=== PATIENT | female | born 1950 | race Caucasian/White ===

== ENCOUNTER → 2017-03-02 | Outpatient (CLI) | payer OTHER ==
[~2017-03-02] MED LIST: ADULT LOW DOSE81 MG; AMBIEN 10 MG TA10 MG PO; ANTIVERT25 MG PO; APAP500 PO; ASPIRIN EC81 M1 PO; ASPIRIN325 PO; B-121000 MCG PO; B12INJ; B12INJ SL; BAYER CHEWABLE81 MG PO; BENADRYL25 MG PO; BENZONATATE100 MG PO; BLACK COHOSH PO; BLUE EMU; BUSPAR PO; CENTRUM SILVER1 EAC3; CEROVITE SENIO1 EACH PO; CINNAMON; CINNAMON PO; CIPROFLOXACIN500 M1 PO; CLARITIN10 MG PO; CO Q-10100 MG PO; COENZYME Q10100 M2 PO; COENZYME Q10100 MG PO; COENZYME Q1050 M1 PO; COENZYME Q1060 MG; DIFLUCAN150 MG PO; EFFEXOR XR150 MG PO; EFFEXOR XR75 MG PO; FANAPT1 MG PO; FANAPT2 MG PO; FISH OIL 1,4001 EACH; FISH OIL 1,4001 EACH PO; FLAXSEED OIL PO; FLAXSEED OIL1000 M2 PO; FLAXSEED OIL1000 MG; FLEXERIL PO; FUROSEMIDE 20 M20 M1 PO; HYDROXYZINE HCL25 M1 PO; IBUPROFEN 400400 M2 PO; IRON325 PO; K-DUR 20 MEQ T20 MEQ PO; KEFLEX500 MG PO; KLOR-CON 1010 MEQ; KLOR-CON 1010 MEQ PO; LAMICTAL100 MG PO; LASIX 20 MG TAB20 MG; LASIX 20 MG TAB20 MG PO; LEVOTHYROXIN0.125 M1 PO; LEVOTHYROXIN0.137 M1 PO; LOMOTIL TABLET1 EACH; LOMOTIL TABLET1 EACH PO; LORATIDINE 10 M10 M1 PO; LUNESTA2 MG PO; LUNESTA3 MG; LYRICA 50 MG50 MG; LYRICA 50 MG50 MG PO; MAGNESIUM250 M1; MAGNESIUM250 M1 PO; METFORMIN HCL500 MG PO; METOPROLOL SUCC25 M1 PO; NEXIUM40 MG; NORCO 5-325 TA1 EACH PO; OMEPRAZOLE40 MG PO; OXCARBAZEPINE600 MG PO; OXYBUTYNIN 5 MG5 M2 PO; PEPCID PO; POTASSIUM20 PO; PRILOSEC40 MG PO; PROAIR HFA8.5 GM; PROSIGHT TABLE1 EACH PO; PROVENTIL HFA6.7 G1 INH; RED YEAST RICE600 MG PO; REQUIP 1 MG TABL1 M1 PO; RESTORIL30 MG PO; ROZEREM PO; SAPHRIS10 MG SL; SEROQUEL 100 M100 MG PO; SEROQUEL 25 MG25 MG; SEROQUEL PO; SEROQUEL XR 30300 M1 PO; SIMVASTATIN40 MG PO; TOPAMAX 25 MG T25 M1 PO; TOPROL XL25 MG PO; TRAZODONE HCL100 MG PO; TRILEPTAL 300300 MG; TYLENOL EX-STR500 M2 PO; VENLAFAXINE HC225 MG PO; VISTARIL 25 MG25 M1; VITAMIN B-12500 MCG PO; ZOCOR PO; ZPAK PO; [UNRECOGNIZED DRUG - MIXTURE]; [UNRECOGNIZED DRUG - MIXTURE] PO
== END ==
LOC: RAD 02:42
DX: Z12.31 Encounter for screening mammogram for malignant neoplasm of breast (principal)

== ENCOUNTER 2017-03-21 13:19 | Emergency (ER) | payer OTHER ==
[~2017-03-21] VITALS: Ht 160 cm; Wt 113.4 kg
--- NOTE | ~2017-03-21 | EKG ---
[facility] [place] [address] ELECTROCARDIOGRAM REPORT Name: CARSON GUERRERO Room #: DEP YESSY Carrera#: [id number] Admission: 03/21/17 Attend Phys: Discharge: 03/21/17 Date of : 50 Report #: [id number] THIS REPORT FOR: //name// [facility] ED Test Date: 2017-03-21 Test Time: 13:24:44 Pat Name: CARSON GUERRERO Department: Room: Gender: F Maintenance Assistant: KKODJOVI : 1950 Requested By: Dang Shelton Order Number: [id number] MD: Ruperto Bunch Measurements Intervals [place] Rate: 57 P: 81 AK: 177 QRS: -3 QRSD: 113 T: 55 QT: 423 QTc: 412 Interpretive Statements Sinus bradycardia Inferior infarct, old Anterior infarct, old No significant change was found Electronically Signed On 03-22-2017 8:30:37 CDT by Ruperto Bunch [email or web address] <ELECTRONICALLY SIGNED> By: Ruperto Bunch MD, [facility] 03/22/17 0830 1324 1324 Ruperto Bunch MD, FACC /EPI
[2017-03-21] MEDS ORDERED: NORCO 5-325 TA1 EACH PO (13:52)
[2017-03-21 14:14] LABS: ABSOLUTE NEUTROPHILS 5.9 thou/uL (1.4-8.2); EOSINOPHILS 1.3 % (0.0-3.0); HEMATOCRIT 36.8 % (37.0-47.0); HEMOGLOBIN 12.4 gm/dL (12.0-15.0); LYMPHOCYTES 22.9 % (24.0-44.0); MANUAL DIFF NO; MCH 29.2 pg (26.0-34.0); MCHC 33.7 g/dL (28.0-37.0); MCV 86.7 fL (80.0-100.0); MONOCYTES 8.4 % (1.0-8.0); PLATELET COUNT 301 thou/uL (150-400); POLYS 66.4 % (36.0-66.0); RBC 4.24 mil/uL (4.20-5.00); RDW 13.9 % (10.5-14.5); WBC 8.9 thou/uL (4.0-11.0)
[2017-03-21 14:21] LABS: ANION GAP 6 mmol/L (7-16); BUN 13 mg/dL (7-18); CALCIUM 8.9 mg/dL (8.5-10.1); CHLORIDE 103 mmol/L (98-107); CO2 28 mmol/L (21-32); CREATININE 0.5 mg/dL (0.6-1.0); GLUCOSE 106 mg/dL (74-106); SODIUM 137 mmol/L (136-145)
[2017-03-21 14:29] LABS: TROPONIN-I < 0.04 ng/mL (<0.04-0.07)
[2017-03-21 15:05] VITALS: BP 138/59
== END 2017-03-21 15:09 | disposition home or self-care (01) ==
LOC: ER 13:19
PROVIDERS: Emergency Medicine
DX: R09.1 Pleurisy (principal); M54.9 Dorsalgia, unspecified; I10 Essential (primary) hypertension; E78.5 Hyperlipidemia, unspecified; Z90.89 Acquired absence of other organs; Z88.8 Allergy status to other drugs, medicaments and biological substances; Z88.6 Allergy status to analgesic agent; Z88.5 Allergy status to narcotic agent

== ENCOUNTER → 2018-07-06 | Outpatient (CLI) | payer OTHER | LOC: RAD 04:50 | DX: Z12.31 Encounter for screening mammogram for malignant neoplasm of breast (principal) ==

== ENCOUNTER 2018-07-14 23:26 | Inpatient (IN) | payer OTHER ==
[~2018-07-14] VITALS: Ht 160 cm; Wt 128.8 kg
--- NOTE | ~2018-07-14 | H ---
[facility] [place] [address] HISTORY AND PHYSICAL Name: CARSON GUERRERO Room #: 216-P [facility] IN .R.#: [id number] Admission: 07/15/18 Attend Phys: Ana Interiano MD Discharge: 07/18/18 Date of : [birth year] Report #: [id number] THIS REPORT FOR: //name// CC: Ana Osuna DATE OF SERVICE: 07/15/2018 HISTORY OF PRESENT ILLNESS: The patient is a 68-year-old female who was brought to the Emergency Room because of being very confused and delirious. The patient was found to have a urinary tract infection. The patient was having a temperature of 104 at the residential facility that she was in. The patient was diagnosed to have urinary tract infection 2 days before coming to the Emergency Room. PAST MEDICAL HISTORY: Significant for two left breast biopsies in 1992, bilateral cataracts with implants, hypertension, hyperlipidemia, exploratory laparotomy, tonsillectomy and anemia. The patient has morbid obesity. MEDICATIONS: The patient's medications were reviewed. ALLERGIES: OXYCODONE, SARA INHIBITOR AND TRAMADOL. SOCIAL HISTORY: The patient denies any history of smoking, alcohol use or drug use. FAMILY HISTORY: Noncontributory. REVIEW OF SYSTEMS: The patient denies any headache, blurred vision, runny nose, sore throat, cough, chest pain, shortness of breath or palpitation. She denies any nausea, vomiting or changes in her bowels. She denies any pain in the arms or legs. PHYSICAL EXAMINATION: VITAL SIGNS: Showed a temperature of 97.9. Highest temperature on arrival to the hospital was 104.4. Pulse 81, respirations 18 and blood pressure 146/73. Oxygen saturation is 94%. HEAD AND NECK EXAMINATION: Unremarkable. Neck was supple. LUNGS: Clear to auscultation. CARDIAC: S1, S2. ABDOMEN: Benign. Bowel sounds were positive. EXTREMITIES: Without any edema. NEUROLOGIC: Cranial nerves were intact. Power was 5/5 in the upper and lower extremities. LABORATORY DATA: Labs on arrival to the hospital showed a white count of 20.8, [facility] [address] [place] [address] [facility] Room #: 216-P [facility] IN [facility]#: [id number] Admission: 07/15/18 Attend Phys: Ana Interiano MD Discharge: 07/18/18 Date of : 50 Report #: [id number] hemoglobin 13.5, hematocrit 40.2, platelet count of 363,000 and neutrophils are 81% with 16% bands. The patient's comprehensive metabolic panel showed a sodium of 141, potassium 3.9, chloride 101, bicarbonate 28, BUN 22, creatinine 1 and glucose of 200. Alkaline phosphatase 122, ALT 21 and total protein is 8.5. Troponin less than 0.06. Lactic acid was 2.9. Urinalysis showed trace ketones, trace blood, +1 leukocyte and white blood cells 10-25. The patient's chest x-ray showed mild increased bibasilar density, suggesting atelectasis. Repeated lactic acid is 1.6. A 12-lead EKG showed sinus tachycardia, left bundle branch block. The patient with basic metabolic panel repeated showed a glucose of 170 and calcium of 8.4. The patient's CBC dropped to 17.6, hemoglobin 12.2, hematocrit 36.9 and platelet count 322,000. Blood culture is showing no growth so far. An EKG showed sinus rhythm with left bundle branch block. ASSESSMENT AND PLAN: Urinary tract infection, sepsis and morbid obesity. The patient was admitted to the hospital with the above-mentioned diagnoses. The patient was started on Rocephin. She is to continue the current medications. We will continue with the patient's home medications. We will continue with the IV hydration. I will repeat her labs again tomorrow morning. We will continue to monitor the patient. I will start the patient on Lovenox for DVT prophylaxis. <ELECTRONICALLY SIGNED> By: Ana Interiano MD 07/23/18 0840 0849 1015 Ana Interiano MD /nt
--- NOTE | ~2018-07-14 | EKG ---
[address] [employer] [place] [address] ELECTROCARDIOGRAM REPORT Name: CARSON GUERRERO Room #: 216-P ADM IN M.R.#: [id number] Admission: 07/15/18 Attend Phys: Ana Interiano MD Discharge: Date of : 50 Report #: [id number] THIS REPORT FOR: //name// [facility] Test Date: 2018-07-15 Test Time: 08:09:00 Pat Name: CARSON GUERRERO Department: Room: 216 P Gender: F Retail Assistant Manager: LAURA : 1950 Requested By: Ana Interiano Order Number: [id number] MD: Ruperto Bunch Measurements Intervals [place] Rate: 78 P: 71 NC: 173 QRS: -12 QRSD: 153 T: 64 QT: 428 QTc: 488 Interpretive Statements Sinus rhythm Left bundle branch block Compared to ECG 07/15/2018 00:28:11 Sinus tachycardia no longer present Electronically Signed On 07-16-2018 8:03:50 PIECE DYER by Ruperto Bunch [email or web address] <ELECTRONICALLY SIGNED> By: Ruperto Bunch MD, [facility] 07/16/18802 8 8 Ruperto Bunch MD, FACC /EPI
--- NOTE | ~2018-07-14 | EKG ---
[address] [place] [address] ELECTROCARDIOGRAM REPORT Name: CARSON GUERRERO Room #: 216-P ADM IN M.R.#: [id number] Admission: 07/15/18 Attend Phys: Anatoly Osuna MD, FAAF Discharge: Date of : 50 Report #: [id number] THIS REPORT FOR: //name// [facility] ED Test Date: 2018-07-15 Test Time: 00:28:11 Pat Name: CARSON GUERRERO Department: Room: 216 Gender: F Mill Feeder: yordy : 1950 Requested By: Maynor Tidwell Order Number: [id number] MD: Ruperto Bunch Measurements Intervals [place] Rate: 131 P: 0 NC: 133 QRS: 1 QRSD: 137 T: 156 QT: 317 QTc: 468 Interpretive Statements Sinus tachycardia Left bundle branch block Compared to ECG 03/21/2017 13:24:44 Left bundle-branch block now present Sinus bradycardia no longer present Electronically Signed On 07-15-2018 9:39:10 LOSS PREVENTION AGENT by Ruperto Bunch [email or web address] <ELECTRONICALLY SIGNED> By: Ruperto Bunch MD, [facility] 07/15/18 0939 Ruperto Bunch MD, FAC /EPI
[2018-07-14 23:27] VITALS: BP 147/57
[2018-07-15] VITALS (7 sets, daily range): BP systolic 111–148; BP diastolic 49–102
[2018-07-15 00:58] LABS: HEMATOCRIT 40.2 % (37.0-47.0); HEMOGLOBIN 13.5 gm/dL (12.0-15.0); MCH 28.9 pg (26.0-34.0); MCHC 33.6 g/dL (28.0-37.0); MCV 86.1 fL (80.0-100.0); PLATELET COUNT 363 thou/uL (150-400); RBC 4.66 mil/uL (4.20-5.00); WBC 20.8 thou/uL (4.0-11.0)
[2018-07-15 01:21] LABS: ANION GAP 12 mmol/L (7-16); BUN 22 mg/dL (7-18); CALCIUM 9.5 mg/dL (8.5-10.1); CHLORIDE 101 mmol/L (98-107); CO2 28 mmol/L (21-32); GLUCOSE 200 mg/dL (74-106); POTASSIUM 3.9 mmol/L (3.5-5.1); SODIUM 141 mmol/L (136-145)
[2018-07-15 01:21] LABS: ABSOLUTE NEUTROPHILS 20.2 thou/uL (1.4-8.2); PLATELET ESTIMATE NORMAL
[2018-07-15 01:22] LABS: URINE BILIRUBIN NEGATIVE (Negative); URINE BLOOD TRACE (Negative); URINE CLARITY CLOUDY; URINE COLOR YELLOW; URINE GLUCOSE-RANDOM* NEGATIVE (Negative); URINE KETONES TRACE (Negative); URINE LEUKOCYTES-REFLEX 1+ (Negative); URINE NITRITE-REFLEX POSITIVE (Negative); URINE PROTEIN (DIPSTICK) NEGATIVE (Negative)
[2018-07-15 01:30] LABS: ALBUMIN 3.6 g/dL (3.4-5.0); SGOT 18 U/L (15-37); SGPT 21 U/L (30-65); TOTAL BILIRUBIN 0.3 mg/dL (<0.1-1.0); TOTAL PROTEIN 8.5 g/dL (6.4-8.2); TROPONIN-I <0.06 ng/mL (<0.06)
[2018-07-15 01:50] LABS: BACTERIA-REFLEX >30 Many /HPF (None Seen); CASTS None Seen /LPF (None Seen); CRYSTALS None Seen /LPF (None Seen); SQUAMOUS None Seen /LPF (0-3); URINE RBC None Seen /HPF (0-2)
[2018-07-15] MEDS ORDERED: LASIX 20 MG TAB20 MG PO (04:44)
[2018-07-15] MEDS ORDERED: HYDROCHLOROTHIA25 M2 PO (04:46)
[2018-07-15] MEDS ORDERED: VISTARIL 25 MG25 M1 PO (04:48)
[2018-07-15] MEDS ORDERED: SYNTHROID112 MC1 PO (05:00)
[2018-07-15] MEDS ORDERED: MAGOX 400400 MG PO (05:06)
[2018-07-15] MEDS ORDERED: FANAPT10 MG PO ×2 (05:10→10:58)
[2018-07-16 04:21] VITALS: BP 135/67
[2018-07-16 04:41] LABS: CALCIUM 8.4 mg/dL (8.5-10.1); CREATININE 0.6 mg/dL (0.6-1.0); POTASSIUM 3.5 mmol/L (3.5-5.1)
[2018-07-16 07:48] VITALS: BP 147/73
[2018-07-16 07:52] LABS: HEMATOCRIT 36.9 % (37.0-47.0); HEMOGLOBIN 12.2 gm/dL (12.0-15.0); MCH 28.6 pg (26.0-34.0); MCHC 32.9 g/dL (28.0-37.0); MCV 86.8 fL (80.0-100.0); RBC 4.25 mil/uL (4.20-5.00); RDW 14.2 % (10.5-14.5); WBC 17.6 thou/uL (4.0-11.0)
[2018-07-16 15:49] VITALS: BP 139/51
[2018-07-16 20:33] VITALS: BP 141/62
[2018-07-17 04:47] VITALS: BP 128/61
[2018-07-17 06:19] LABS: HEMATOCRIT 32.2 % (37.0-47.0); HEMOGLOBIN 10.7 gm/dL (12.0-15.0); MCH 28.5 pg (26.0-34.0); MCHC 33.3 g/dL (28.0-37.0); MCV 85.6 fL (80.0-100.0); PLATELET COUNT 314 thou/uL (150-400); RBC 3.76 mil/uL (4.20-5.00); WBC 14.4 thou/uL (4.0-11.0)
[2018-07-17 06:33] LABS: CALCIUM 8.2 mg/dL (8.5-10.1); CREATININE 0.6 mg/dL (0.6-1.0); POTASSIUM 3.6 mmol/L (3.5-5.1)
[2018-07-17 07:29] VITALS: BP 124/52
[2018-07-17 09:12] LABS: ABSOLUTE NEUTROPHILS 10.9 thou/uL (1.4-8.2); PLATELET ESTIMATE NORMAL
[2018-07-17 11:15] VITALS: BP 132/56
[2018-07-17 11:59] VITALS: BP 115/72
[2018-07-17 15:46] VITALS: BP 160/78
[2018-07-17 19:37] VITALS: BP 141/63
[2018-07-17 21:26] LABS: URINE BILIRUBIN NEGATIVE (Negative); URINE BLOOD NEGATIVE (Negative); URINE CLARITY CLEAR; URINE COLOR YELLOW; URINE GLUCOSE-RANDOM* NEGATIVE (Negative); URINE KETONES NEGATIVE (Negative); URINE LEUKOCYTES-REFLEX NEGATIVE (Negative); URINE NITRITE-REFLEX NEGATIVE (Negative); URINE PROTEIN (DIPSTICK) NEGATIVE (Negative); URINE UROBILINOGEN 0.2 E.U./dl (0.2-1.0)
[2018-07-18 05:33] VITALS: BP 145/78
[2018-07-18 09:42] VITALS: BP 149/62
[2018-07-18] MEDS ORDERED: CLOTRIMAZOLE10 MG PO (10:22)
[2018-07-18 13:58] VITALS: BP 149/62
== END 2018-07-18 15:10 | disposition home or self-care (01) | DRG 871 ==
LOC: ER 23:26 → EROBS 07-15 02:39 → 2N 07-15 02:39 → ENTRNSPT 07-18 14:50 → EDTRNSPTSTS 07-18 14:52 → 2N 07-18 15:10
PROVIDERS: Emergency Medicine; Family Medicine; Internal Medicine
DX: A41.9 Sepsis, unspecified organism (principal); G92 Toxic encephalopathy; N30.00 Acute cystitis without hematuria; Z68.43 Body mass index [BMI] 50.0-59.9, adult; I10 Essential (primary) hypertension; E78.5 Hyperlipidemia, unspecified; K21.9 Gastro-esophageal reflux disease without esophagitis; R65.20 Severe sepsis without septic shock; I44.7 Left bundle-branch block, unspecified; B96.20 Unspecified Escherichia coli [E. coli] as the cause of diseases classified elsewhere; E66.01 Morbid (severe) obesity due to excess calories; Z96.1 Presence of intraocular lens; Z98.42 Cataract extraction status, left eye; Z98.41 Cataract extraction status, right eye; Z79.84 Long term (current) use of oral hypoglycemic drugs; Z79.899 Other long term (current) drug therapy; Z88.8 Allergy status to other drugs, medicaments and biological substances
CPT/HCPCS: 10081; 10797

== ENCOUNTER 2019-02-28 09:21 | Inpatient (IN) | payer OTHER ==
[~2019-02-28] VITALS: Ht 160 cm; Wt 120.2 kg
--- NOTE | ~2019-02-28 | HC ---
[facility] [place] [address] [place] [address] CONSULTATION Name: CARSON GUERRERO Room #: 352-P ADM IN M.R.#: [id number] Admission: 02/28/19 ������������������ Attend Phys: Braxton Kumar DO Discharge: ������������������ Date of : 50 Report #: [id number] THIS REPORT FOR: //name// CC: Braxton Osuna HISTORY OF PRESENT ILLNESS: The patient is a 68-year-old female who is usually followed by Dr. Trever Osuna. Dr. Kumar admitted the patient and Dr. Osuna is out of town. She does not have specific cardiac history, but has a long history, I mean looks like obesity and unsteadiness and lives in an assisted facility, close to the [place]. She ambulates with a walker typically but has chronic unsteadiness and difficulty transferring and getting around. She had a fall, where she did hit her head today. Although she is very adamant that there was no loss of consciousness, but did have a sudden fall, not sure if this was mechanical or syncope, but she again states that she did not pass out. There is a bump on the back of her head, she states and no other visible abrasions. She denies chest pain, angina, no palpitations or any real premonition of this, but again has this long history of unsteadiness. HOME MEDICATIONS: Simvastatin 40, topiramate, trazodone, ropinirole, potassium, Lasix 20, CoQ10, levothyroxine, ibuprofen p.r.n., fish oil and ProAir. PAST MEDICAL HISTORY: Positive for apparently some reactive airway disease, sleep apnea, unsteadiness, DJD, obesity, hypertension, bipolar disorder, hypothyroidism. LABORATORY DATA: H and H 12 and 36, white count 9.0, platelets 320. Chem: Sodium 130, potassium 3.4, creatinine 0.6, glucose 140. Troponins are negative, less than 0.06. CT of the spine, disk narrowing C5-C6 and C6-C7, osteophytes, no fracture. CAT scan of the head, of course the recent diffuse cerebral atrophy, no acute process. Chest x-ray, no acute process. SOCIAL HISTORY: She is . She lives in this facility, she has 2 children. No alcohol or tobacco. FAMILY HISTORY: Negative for premature coronary artery disease. REVIEW OF SYSTEMS: Essentially negative except for as stated above and reviewed above. PHYSICAL EXAMINATION: VITAL SIGNS: Blood pressure 118/52, pulse 70s. HEENT: Eyes reveal xanthelasmas. Pharynx is clear. NECK: Shows preserved upstrokes without JVD or bruits. LUNGS: Prolonged expiratory phase, but clear. CARDIOVASCULAR: Distant heart tones, S1, S2. ABDOMEN: Obese, nontender. Positive bowel sounds are noted. [facility] [address] [place] [address] CONSULTATION Name: CARSON GUERRERO Room #: 352-P ADM IN M.R.#: [id number] Admission: 02/28/19 ������������������ Attend Phys: Braxton Kumar DO Discharge: ������������������ Date of : 50 Report #: [id number] EXTREMITIES: Reveal trace to 1+ edema, some mild venous stasis changes. I cannot palpate distal pulses. NEUROLOGIC: Nonfocal. SKIN: Warm and dry without xanthoma or ulcer. There is mild eczematous changes. NEUROLOGIC: Intact. MUSCULOSKELETAL: There is also valgus deformity of the knees, did not ambulate. ASSESSMENT: 1. Fall, possible syncopal event. 2. Hypertension. 3. Morbid obesity. 4. Hypothyroidism. 5. Bipolar. RECOMMENDATIONS AND PLAN: EKG is sinus rhythm. She apparently has a history of left bundle-branch block, this is not new. There are no associated chest pain symptoms or palpitations. We will continue on a telemetry, although I think this is presumably noncardiogenic. I believe it could certainly be more of a mechanical fall because of her unsteadiness and ambulating with a walker. Nocturnal desaturation study is ordered. We will get an echo Doppler in the morning. I am not considering stress testing at this time unless there will be some significant findings on the echo. Exam is relatively benign. One can consider an outpatient monitor, but it seems that there certainly would be an explanation with her history of unsteadiness walking and very limited mobility that she could have fallen and not truly a syncopal event. We will continue to follow with you. Carotid Doppler may be of some benefit. ��������������������������������������������� ���������������������������������������� By: ��������������������������������������������� 2208 1356 Wesly Oliver MD, FACC /nt
[~2019-02-28 09:21] MED LIST changes: +CLOTRIMAZOLE10 MG PO; +FANAPT10 MG PO; +HYDROCHLOROTHIA25 M2 PO; +MAGOX 400400 MG PO; +SYNTHROID112 MC1 PO; +VISTARIL 25 MG25 M1 PO
[2019-02-28 09:22] VITALS: BP 123/83
[2019-02-28 11:30] LABS: ABSOLUTE NEUTROPHILS 6.7 thou/uL (1.4-8.2); BASOPHILS 0.6 % (0.0-2.0); EOSINOPHILS 1.5 % (0.0-3.0); HEMATOCRIT 36.6 % (37.0-47.0); HEMOGLOBIN 12.4 gm/dL (12.0-15.0); LYMPHOCYTES 16.7 % (24.0-44.0); MCH 28.5 pg (26.0-34.0); MCHC 33.9 g/dL (28.0-37.0); MCV 84.3 fL (80.0-100.0); PLATELET COUNT 320 thou/uL (150-400); POLYS 74.2 % (36.0-66.0); RBC 4.34 mil/uL (4.20-5.00); RDW 13.8 % (10.5-14.5)
[2019-02-28 11:39] LABS: ANION GAP 9 mmol/L (7-16); BUN 12 mg/dL (7-18); CALCIUM 8.7 mg/dL (8.5-10.1); CHLORIDE 91 mmol/L (98-107); CO2 30 mmol/L (21-32); CREATININE 0.6 mg/dL (0.6-1.0); GLUCOSE 141 mg/dL (74-106); POTASSIUM 3.4 mmol/L (3.5-5.1); SODIUM 130 mmol/L (136-145)
[2019-02-28 11:48] LABS: ALBUMIN 3.3 g/dL (3.4-5.0); SGOT 16 U/L (15-37); SGPT 18 U/L (30-65); TOTAL BILIRUBIN 0.1 mg/dL (<0.1-1.0); TOTAL PROTEIN 7.5 g/dL (6.4-8.2); TROPONIN-I <0.06 ng/mL (<0.06)
[2019-02-28 13:11] LABS: URINE BILIRUBIN NEGATIVE (Negative); URINE BLOOD NEGATIVE (Negative); URINE CLARITY SL CLOUDY; URINE COLOR YELLOW; URINE GLUCOSE-RANDOM* NEGATIVE (Negative); URINE KETONES NEGATIVE (Negative); URINE PROTEIN (DIPSTICK) NEGATIVE (Negative); URINE SPECIFIC GRAVITY 1.015 (1.005-1.035); URINE UROBILINOGEN 0.2 E.U./dl (0.2-1.0)
[2019-02-28 13:12] LABS: URINE LEUKOCYTES-REFLEX 1+ (Negative); URINE NITRITE-REFLEX POSITIVE (Negative)
[2019-02-28 13:21] LABS: AMORPHOUS URATES Few /LPF (None Seen); BACTERIA-REFLEX >30 Many /HPF (None Seen); CASTS None Seen /LPF (None Seen); SQUAMOUS 0-3 Few /LPF (0-3); URINE RBC None Seen /HPF (0-2); URINE WBC-REFLEX 6-15 Few /HPF (0-5)
[2019-02-28 13:42] VITALS: BP 126/58
[2019-02-28 13:55] VITALS: BP 138/72
[2019-02-28 15:02] VITALS: BP 159/79
--- NOTE | 2019-02-28 15:45 | NUR ---
[age] YEAR FEMALE ADMITTED TO WEST ROOM 352 UNDER THE CARE OD DR. CAMPOS. PT WAS BROUGHT INTO THE ER PER, FUNERAL PROFESSIONAL FROM [facility] AFTER FALLING AND HITTING HER HEAD. PT IS ALERT AND ORIENTED TIMES FOUR. VSS, 93%RA, SR ON TELE. PT DENIES PAIN/SOA AT THIS TIME. UP WITH ASSIST OF ONE. FUNERAL PROFESSIONAL AT BEDSIDE DURING ADMISSION ASSESSMENT. WILL CONTINUE TO MONITOR.
[2019-02-28 20:03] VITALS: BP 118/52
[2019-03-01 04:34] VITALS: BP 125/60
[2019-03-01 06:59] LABS: ABSOLUTE NEUTROPHILS 6.5 thou/uL (1.4-8.2); BASOPHILS 0.5 % (0.0-2.0); EOSINOPHILS 1.3 % (0.0-3.0); HEMATOCRIT 37.3 % (37.0-47.0); HEMOGLOBIN 12.4 gm/dL (12.0-15.0); LYMPHOCYTES 17.7 % (24.0-44.0); MCH 28.4 pg (26.0-34.0); MCHC 33.2 g/dL (28.0-37.0); MCV 85.6 fL (80.0-100.0); PLATELET COUNT 304 thou/uL (150-400); POLYS 72.5 % (36.0-66.0); RBC 4.35 mil/uL (4.20-5.00); RDW 13.6 % (10.5-14.5)
[2019-03-01 07:16] LABS: CALCIUM 8.7 mg/dL (8.5-10.1); CREATININE 0.7 mg/dL (0.6-1.0); POTASSIUM 3.7 mmol/L (3.5-5.1)
[2019-03-01 07:20] VITALS: BP 146/75; BP 169/61
[2019-03-01 07:28] VITALS: BP 136/75
[2019-03-01 07:31] VITALS: BP 130/75
--- NOTE | 2019-03-01 07:47 | EKG ---
[address] [place] [address] ELECTROCARDIOGRAM REPORT Name: CARSON GUERRERO Room #: 352-P ADM IN M.R.#: [id number] ������������������ Admission: 02/28/19 ������������������ Attend Phys: Braxton Kumar DO Discharge: ������������������ Date of : 50 Report #: [id number] ����������������������������������������������������������������� [id number] THIS REPORT FOR: //name// [facility] ED Test Date: 2019-02-28 Test Time: 11:09:30 Pat Name: CARSON GUERRERO Department: Room: [facility] Gender: F Director Of Personnel: : 1950 Requested By: Gabriella Henson Order Number: [id number] MD: Ruperto Bunch Measurements Intervals [place] Rate: 65 P: 86 SC: 198 QRS: -6 QRSD: 160 T: 47 QT: 471 QTc: 490 Interpretive Statements Sinus rhythm Left bundle branch block Compared to ECG 07/15/2018 08:09:00 No significant changes Electronically Signed On 03-01-2019 7:47:28 CDT by Ruperto Bunch [email or web address] ��������������������������������������������� <ELECTRONICALLY SIGNED> ���������������������������������������� By: Ruperto Bunch MD, [facility] ��������������������������������������������� 03/01/19 0747 1109 1109 Ruperto Bunch MD, FACC /EPI
--- NOTE | 2019-03-01 08:00 | EKG ---
[address] [address] [facility] [place] [address] ELECTROCARDIOGRAM REPORT Name: CARSON GUERRERO Room #: 352- ADM IN M.R.#: [id number] ������������������ Admission: 02/28/19 ������������������ Attend Phys: Braxton Kumar DO Discharge: ������������������ Date of : 50 Report #: [id number] ����������������������������������������������������������������� [id number] THIS REPORT FOR: //name// [facility] Test Date: 2019-03-01 Test Time: 07:34:15 Pat Name: CARSON GUERRERO Department: Room: [facility] Gender: F Staker Surveying: MORIAH : 1950 Requested By: Wesly Oliver Order Number: [id number] MD: Ruperto Bunch Measurements Intervals [place] Rate: 69 P: 58 NC: 173 QRS: 1 QRSD: 151 T: 78 QT: 433 QTc: 464 Interpretive Statements Sinus rhythm Left bundle branch block Compared to ECG 07/15/2018 08:09:00 No significant changes Electronically Signed On 03-01-2019 8:00:39 CDT by Ruperto Bunch [email or web address] ��������������������������������������������� <ELECTRONICALLY SIGNED> ���������������������������������������� By: Ruperto Bunch MD, [facility] ��������������������������������������������� 03/01/19 08 0734 3 Ruperto Bunch MD, FACC /EPI
--- NOTE | 2019-03-01 09:07 | H ---
[facility] [place] [address] HISTORY AND PHYSICAL Name: CARSON GUERRERO Room #: 352-P [facility] IN M.R.#: [id number] Admission: 02/28/19 ������������������ Attend Phys: Braxton Kumar DO Discharge: ������������������ Date of : 50 Report #: [id number] THIS REPORT FOR: //name// CC: Braxton Osuna MD DATE OF SERVICE: 02/28/2019 HISTORY OF PRESENT ILLNESS: This 68-year-old white female who was admitted through the Emergency Room with a history that she was walking in her apartment and she fell to the ground without warning. She hit her head, but says she did not lose consciousness. She says she did not realize she was falling. She had not done this before. She was brought to the hospital for evaluation. She denies pain or shortness of breath. In the Emergency Room, she was found to be hypoxic at rest and is being admitted for observation purposes and for further evaluation. PAST MEDICAL HISTORY: The patient worked as an [employer]ER [employer] at [employer] until the 70s. She says she has bipolar disorder, but seems to be an accurate historian. She has lived in [facility] for 10 years when her . 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 She had artificial insemination for one baby and had an adopted 4-pound baby for a total of 2 children. Her only surgery was tonsillectomy. She had obstructive sleep apnea, but when she moved to [facility] 10 years ago her CPAP machine did not move with her and she has not worn it since. She has had hypothyroidism, hyperlipidemia, obesity, last hospitalization in 07/2018 for sepsis, which she was able to describe. She has had bilateral cataract resections, 2 left breast biopsies in 1992, hypertension, exploratory laparotomy. ALLERGIES: OXYCODONE, SARA INHIBITORS AND TRAMADOL. SOCIAL HISTORY: No cigarette or alcohol use. MEDICATIONS ON ADMISSION: ProAir HFA p.r.n., simvastatin 40 mg nightly, fish oil 1400 mg daily, ibuprofen 400 mg q.4h. p.r.n. pain, Tylenol 1000 mg q.6h. p.r.n. pain, lamotrigine 100 mg at bedtime, topiramate 25 mg b.i.d., oxcarbazepine 600 mg b.i.d., trazodone 200 mg at bedtime, Fanapt 10 mg b.i.d., hydroxyzine 50 mg at bedtime, ropinirole 1 mg at bedtime, KCl 20 mEq daily, furosemide 20 mg daily, HCTZ 25 mg daily, Mag-Ox 400 mg daily, metformin 500 mg b.i.d., L-thyroxine 0.112 mg daily, oxybutynin 5 mg t.i.d., ProSight vitamin 1 daily, coenzyme Q10 100 mg daily. REVIEW OF SYSTEMS: She says she walks without an appliance. She denies recent fever, chills, cough, shortness of breath, nausea, vomiting, diarrhea or dysuria. [facility] [address] [place] [address] HISTORY AND PHYSICAL Name: CARSON GUERRERO Room #: 352-P ADM IN M.R.#: [id number] Admission: 02/28/19 ������������������ Attend Phys: Braxton Kumar DO Discharge: ������������������ Date of : 50 Report #: [id number] PHYSICAL EXAMINATION: GENERAL: Morbidly obese, but pleasant white female, alert and cooperative. VITAL SIGNS: BP 159/79, pulse 80, respiration 17, temperature afebrile. HEAD: No rash or trauma. EARS, NOSE AND THROAT: She has her own teeth in fair condition. No oral lesions. Her tongue is very thick. EYES: No icterus. NECK: Supple, without bruits. LUNGS: Clear. Cough is dry. Breath sounds are shallow and diminished. HEART: Rhythm regular without murmur. ABDOMEN: Obese, soft, without masses or tenderness. EXTREMITIES: No edema. NEUROLOGIC: No lateralized deficits, seems to be an accurate historian. LABORATORY DATA: CAT scan of the head and cervical spine show osteophyte formation in the neck and disk narrowing at C5-C6 and C6-C7. CAT scan of the head shows moderate cerebral atrophy without acute process. Chest x-ray was negative. Hemoglobin 12.4, white count 9000. Sodium low at 130, potassium 3.4, CO2 of 30, BUN 12, creatinine 0.6, estimated GFR 99, blood sugar 141, calcium 8.7. Liver enzymes normal. Troponin normal. Albumin slightly low at 3.3. Thyroid function pending. IMPRESSION: 1. Fall, possibly syncope without loss of consciousness. 2. Hypoxia. 3. History of obstructive sleep apnea. 4. Morbid obesity. 5. Probable hypoventilation. 6. History of hypertension. 7. History of hyperlipidemia. 8. History of hypothyroidism. 9. History of bipolar disorder. PLAN: Monitor on telemetry. Cardiology and Pulmonary consultations. Nocturnal saturation study to document desaturation and then hopefully resume CPAP. Physical therapy evaluation with orthostatic blood pressures. ��������������������������������������������� <ELECTRONICALLY SIGNED> ���������������������������������������� By: Braxton Kumar DO ��������������������������������������������� 03/01/19 0907 1820 1847 Braxton Kumar, DO /nt
--- NOTE | 2019-03-01 10:47 | NUR ---
INITIAL ASSESSMENT: CLAUDIA received consult to arrange home O2 for pt. Pt had nocturnal desat study completed last night. Pt needs 2L at . CLAUDIA reviewed chart and spoke with nursing and attending physician. Pt was admitted from [facility] due to hypoxia/falls and possible syncopal episodes. Pt with hx of bipolar and has lived at [facility] for the past 10 years since her . CLAUDIA spoke with director, Lilo, to notify of anticipated discharge later today. Pt uses a walker to ambulate and goes to a day program through her mental health major case detective. Per Lilo, pt may need home O2 during the day time too, as she becomes short of breath with exertion. [facility] provides home O2 to other residents in the . [facility] Pt has an adopted son, Wojciech, who sees pt once per year and is not involved in pt's care. Lilo states that pt has been diagnosed as pre-diabetic and the is assisting pt with her diet and exercise. CLAUDIA spoke with attending physician via phone to provide update. Rest/exercise oximetry ordered to determine if pt needs home O2 during the day. Attending physician to send script to CLAUDIA. c4 planner to fax referral to [facility] for review. Plan is for pt to return to [facility] later today. CLAUDIA is following to assist as needed with discharge planning.
--- NOTE | 2019-03-01 11:30 | 2DMMODE ---
[facility] [place] [address] 2 D/M-MODE ECHOCARDIOGRAM Name: CARSON GUERRERO Room #: 352-P ADM IN ..#: [id number] ������������� Admission: 02/28/19 ������������� Attend Phys: Stephania Lopez Discharge: ��� ������������� ��� Date of : 50 Date of Service: 03/01/19 1130 �� Report #: [id number] �������� ��������������������������������������������[id number] THIS REPORT FOR: //name// APPROVED REPORT Study performed: 03/01/2019 09:02:03 EXAM: Comprehensive 2D, Doppler, and color-flow Echocardiogram Patient Location: Bedside Room #: [facility] Status: routine BSA: 2.18 HR: 70 bpm BP: 125/60 mmHg Rhythm: LBBB Other Information Study Quality: Fair/off axis apicals/limited measurements Technically limited study due to morbid obesity. Indications Syncope. Hx: HTN, HLP, LBBB. Echo Enhancing Agent Indication: Endocardial border delineation Agent(s) / Amount(s) Used: Optison 4 cc 2D Dimensions IVSd: 13.03 (7-11mm) LVOT Diam: 19.26 (18-24mm) LVDd: 44.78 mm PWd: 11.92 (7-11mm) Ascending Ao: 34.80 (22-36mm) LVDs: 28.78 (25-40mm) Aortic Root: 30.79 mm Aortic Valve AoV Peak Syk.: 2.32 m/s AO Peak Gr.: 21.53 mmHg LVOT Max P.50 mmHg AO Mean Gr.: 12.30 mmHg AO V2 Mean: 1.70 m/s LVOT Max V: 1.06 m/s AO V2 VTI: 51.04 cm JAMIN Vmax: 1.33 cm2 Mitral Valve E/A Ratio: 0.9 [facility] [address] [place] [address] 2 D/M-MODE ECHOCARDIOGRAM Name: CARSON GUERRERO Room #: [address] [place] [address] [place] [facility].#: [id number] ������������� Admission: 02/28/19 ������������� Attend Phys: Stephania Lopez Discharge: ��� ������������� ��� Date of : 50 Date of Service: 03/01/19 1130 �� Report #: [id number] �������� ��������������������������������������������[id number] MV Decel. Time: 252.05 ms MV E Max Sky.: 1.15 m/s MV A Sky.: 1.31 m/s MV PHT: 73.09 ms IVRT: 46.14 ms Pulmonary Valve PV Peak Sky.: 1.45 m/s PV Peak Gr.: 8.45 mmHg Tricuspid Valve TR Peak Sky.: 3.07 m/s RAP Estimate: 5.00 mmHg TR Peak Gr.: 37.67 mmHg PA Pressure: 43.00 mmHg Left Ventricle The left ventricle is normal size. LV segmental wall motion is grossly normal. Mild concentric left ventricular hypertrophy. Left ventricular systolic function is normal. LVEF is 55-60%. Mild diastolic dysfunction is present (impaired relaxation pattern). Right Ventricle Right ventricle is not well visualized but appears grossly normal in size and function. Atria The left atrium size is normal. The right atrium size is normal. Aortic Valve Aortic valve is mildly calcified. No aortic regurgitation is present. There is mild valvular aortic stenosis. Calculated aortic valve area is 1.3 cm2 with maximum pressure gradient of 22 mmHg and mean pressure gradient of 12 mmHg Mitral Valve The mitral valve is normal in structure. Mild mitral regurgitation. Tricuspid Valve The tricuspid valve is normal in structure. Mild to moderate tricuspid regurgitation. Estimated PAP is 40mmHg. Pulmonic Valve The pulmonary valve is normal in structure. Trace pulmonic regurgitation. [facility] [address] [place] [address] 2 D/M-MODE ECHOCARDIOGRAM Name: CARSON GUERRERO Room #: 352-P [facility] IN .R.#: [id number] ������������� Admission: 02/28/19 ������������� Attend Phys: Stephania Lopez Discharge: ��� ������������� ��� Date of : 50 Date of Service: 03/01/19 1130 �� Report #: [id number] �������� ��������������������������������������������[id number] [employer] The aortic root is normal in size. The ascending aorta is normal in size. IVC is normal in size and collapses >50% with inspiration. Pericardium There is no pericardial effusion. <Conclusion> Left ventricular systolic function is normal. LV segmental wall motion is grossly normal. LVEF is 55-60%. Mild diastolic dysfunction Aortic valve is mildly calcified, mildly stenotic. No insufficiency Calculated aortic valve area is 1.3 cm2 with maximum pressure gradient of 22 mmHg and mean pressure gradient of 12 mmHg The mitral valve is normal in structure. Mild mitral regurgitation. Mild to moderate tricuspid regurgitation. Estimated pulmonary artery pressure of 40mmHg. There is no pericardial effusion. ��������������������������������������������� <ELECTRONICALLY SIGNED> ���������������������������������������� By: Ruperto Bunch MD, FACC ��������������������������������������������� 03/01/19 1130 1130 1130 Ruperto Bunch MD, FACC /INF
[2019-03-01 13:36] VITALS: BP 130/75
--- NOTE | 2019-03-01 13:58 | NUR ---
DISCHARGE ANTICIPATED FOR TODAY. PATIENT IN NEED OF OXYGEN FOR HOME. CLINCAL INFORMATION AND RX FAXED TO [facility]. JOHN TO FACILITATE PTS OXYGEN NEEDS PRIOR TO PATIENT DISCHARGE. PATIENT WILL NEED PORTABLE OXYGEN TANK FOR TRANPORTATION TO HOME. UNIT CM/SW AWARE. FOLLOWING TO ASSIST.
[2019-03-01 15:06] VITALS: BP 130/75
--- NOTE | 2019-03-01 15:40 | NUR ---
pt's assessment has done, pt is A&OX3, PT's SOB has improved, pt needs o2 2L/min/nc when pt has activities and sleeping, pt's VS and o2sat are stable at this time, pt gets up to use BSC with assist X1, pt denies pain and SOB at this time, PT will dicharged today when pt's home o2 is available, pt gets up to chair now.
--- NOTE | 2019-03-01 18:53 | NUR ---
PT was discharged about 1800pm ,pt had her caregivers to take home, pt had ON o2 2L/MIN/NC.RN had giving D/C teaching , pt had understanded well.
--- NOTE | 2019-03-03 07:01 | D ---
[facility] [place] [address] [place] [address] DISCHARGE SUMMARY Name: CARSON GUERRERO Room #: 352-P [facility] IN M.R.#: [id number] Admission: 02/28/19 ������������������ Attend Phys: Braxton Kumar DO Discharge: 03/01/19 ������������������ Date of : 50 Report #: [id number] THIS REPORT FOR: //name// CC: Braxton Oliver MD [facility] DATE OF SERVICE: 03/01/2019 HISTORY OF PRESENT ILLNESS: This 68-year-old white female fell in her apartment at [facility]. She says she had no warning that she was falling, but did not lose consciousness and was on the floor awake. She denied pain or confusion or incontinence. PAST MEDICAL HISTORY: Significant for bipolar disorder, obesity, obstructive sleep apnea without having CPAP for at least the past 10 years, hypothyroidism, hyperlipidemia, hypertension, hospitalized here in 07/2018 for sepsis, bilateral cataract resections, two benign breast biopsies, exploratory laparotomy. 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 HEAD AND NECK: Revealed her teeth in fair condition. Tongue was very thickened. Neck was supple. LUNGS: Clear. CARDIAC: Negative. BREASTS: Deferred. ABDOMEN: Obese, soft, and nontender. EXTREMITIES: Had no edema. NEUROLOGIC: The patient seemed to be an accurate historian. There were no lateralized deficits. LABORATORY DATA: CAT scan of the head and neck showed arthritis in the neck and cerebral atrophy. Chest x-ray negative. White count 9000, hemoglobin 12.4. Sodium 130, potassium 3.4, CO2 of 30, BUN 12, creatinine 0.6, estimated GFR 99, blood sugar 141, calcium 8.7. Liver enzymes normal. Troponin normal. The patient was admitted to telemetry, seen in consult by Dr. Oliver of Cardiology. Carotid Doppler revealed no significant stenoses. Echocardiogram revealed mild diastolic dysfunction, mild aortic stenosis, and mild pulmonary hypertension. EKG showed left bundle branch block without change from previous EKG in 2018. The patient was seen by Physical Therapy, was able to ambulate in the halls with a four-wheeled walker; however, she did desaturate her oxygen to below 90% with walking. A nocturnal saturation study was performed with [address] [address] DISCHARGE SUMMARY Name: [facility] Room #: 352-P [facility] IN M.R.#: [id number] Admission: 02/28/19 ������������������ Attend Phys: Braxton Kumar DO Discharge: 03/01/19 ������������������ Date of : 50 Report #: [id number] findings of desatting to 80% with a heart rate of 150 on 2 liters. Her oxygen saturation was adequate. Ambulation exercise showed that she only needed 2 liters with ambulation, otherwise dropped to 86%. Her final hemoglobin was 12.4, white count 9000. Sodium 131, potassium 3.7, CO2 of 32, BUN 10, creatinine 0.7, estimated GFR 83, blood sugar 124. Thyroid function normal. On 03/01/2019, she was stable for transfer back to [facility] on low salt diet, on no concentrated sweets diet, on Mag-Ox 400 mg daily, Optison, ProAir HFA 2 puffs q.i.d. p.r.n., simvastatin 40 mg nightly, fish oil 1400 mg daily, ibuprofen or Tylenol p.r.n. pain, lamotrigine 100 mg at bedtime, topiramate 25 mg b.i.d., oxcarbazepine 600 mg b.i.d., trazodone 200 mg at bedtime, Fanapt 10 mg b.i.d., hydroxyzine 50 mg at bedtime, ropinirole 1 mg at bedtime, furosemide 20 mg daily, HCTZ 25 mg daily, KCl 20 mEq daily, metformin 500 mg b.i.d., levothyroxine 0.112 mg daily, oxybutynin 5 mg t.i.d., Prosight vitamin 1 daily, and coenzyme Q 100 mg daily. FINAL DIAGNOSES: 1. Fall due to gait disorder. 2. Left bundle branch block. 3. Hypertension. 4. Morbid obesity. 5. Bipolar disorder. 6. Hyperlipidemia. 7. History of hypothyroidism. 8. Obstructive sleep apnea. 9. Desaturation oxygen with sleep and with exercise. 10. Hyponatremia. 11. Chronic kidney disease stage 2. ��������������������������������������������� <ELECTRONICALLY SIGNED> ���������������������������������������� By: Braxton Kumar DO ��������������������������������������������� 03/03/19 0701 0725 1328 Braxton Kumar DO /nt
== END 2019-03-01 17:55 | disposition home or self-care (01) | DRG 68 ==
LOC: ER 09:21 → EROBS 12:57 → 3W 12:57
PROVIDERS: Nurse Practitioner Family; ADMIT Internal Medicine
DX: I65.23 Occlusion and stenosis of bilateral carotid arteries (principal); E87.1 Hypo-osmolality and hyponatremia; Z68.42 Body mass index [BMI] 45.0-49.9, adult; E78.5 Hyperlipidemia, unspecified; S09.90XA Unspecified injury of head, initial encounter; J45.909 Unspecified asthma, uncomplicated; M19.90 Unspecified osteoarthritis, unspecified site; E66.9 Obesity, unspecified; E03.9 Hypothyroidism, unspecified; F31.9 Bipolar disorder, unspecified; E66.01 Morbid (severe) obesity due to excess calories; G47.33 Obstructive sleep apnea (adult) (pediatric); I12.9 Hypertensive chronic kidney disease with stage 1 through stage 4 chronic kidney disease, or unspecified chronic kidney disease; I44.7 Left bundle-branch block, unspecified; N18.2 Chronic kidney disease, stage 2 (mild); W18.39XA Other fall on same level, initial encounter; Z98.42 Cataract extraction status, left eye; Z98.41 Cataract extraction status, right eye; Z88.6 Allergy status to analgesic agent; Z88.8 Allergy status to other drugs, medicaments and biological substances; Y93.89 Activity, other specified; Y92.89 Other specified places as the place of occurrence of the external cause; Y99.8 Other external cause status; R55 Syncope and collapse
CPT/HCPCS: 10879

== ENCOUNTER 2019-03-15 14:55 | Inpatient (IN) | payer OTHER ==
[~2019-03-15] VITALS: Ht 167.6 cm; Wt 122.6 kg
[2019-03-15 14:55] VITALS: BP 108/50
[2019-03-15 15:48] LABS: ABSOLUTE NEUTROPHILS 10.2 thou/uL (1.4-8.2); BASOPHILS 0.2 % (0.0-2.0); EOSINOPHILS 0.2 % (0.0-3.0); HEMATOCRIT 34.1 % (37.0-47.0); HEMOGLOBIN 11.8 gm/dL (12.0-15.0); LYMPHOCYTES 4.7 % (24.0-44.0); MCH 28.1 pg (26.0-34.0); MCHC 34.5 g/dL (28.0-37.0); MCV 81.4 fL (80.0-100.0); MONOCYTES 6.3 % (1.0-8.0); PLATELET COUNT 356 thou/uL (150-400); POLYS 88.6 % (36.0-66.0); RBC 4.18 mil/uL (4.20-5.00); RDW 13.5 % (10.5-14.5); WBC 11.5 thou/uL (4.0-11.0)
[2019-03-15 16:03] LABS: ALBUMIN 3.3 g/dL (3.4-5.0); BUN 15 mg/dL (7-18); CALCIUM 9.1 mg/dL (8.5-10.1); CHLORIDE 74 mmol/L (98-107); CO2 30 mmol/L (21-32); CREATININE 0.9 mg/dL (0.6-1.0); GLUCOSE 162 mg/dL (74-106); MAGNESIUM 1.9 mg/dL (1.8-2.4); SGOT 15 U/L (15-37); SGPT 17 U/L (30-65); TOTAL BILIRUBIN 0.2 mg/dL (<0.1-1.0); TOTAL PROTEIN 7.6 g/dL (6.4-8.2); TROPONIN-I <0.06 ng/mL (<0.06)
[2019-03-15 16:10] LABS: ANION GAP 12 mmol/L (7-16)
[2019-03-15 16:12] LABS: SODIUM 116 mmol/L (136-145)
[2019-03-15 16:15] LABS: POTASSIUM 2.8 mmol/L (3.5-5.1)
[2019-03-15 16:22] LABS: URINE BILIRUBIN NEGATIVE (Negative); URINE BLOOD NEGATIVE (Negative); URINE CLARITY CLEAR; URINE COLOR YELLOW; URINE GLUCOSE-RANDOM* NEGATIVE (Negative); URINE KETONES NEGATIVE (Negative); URINE PROTEIN (DIPSTICK) NEGATIVE (Negative); URINE SPECIFIC GRAVITY <= 1.005 (1.005-1.035); URINE UROBILINOGEN 0.2 E.U./dl (0.2-1.0)
[2019-03-15 16:25] LABS: URINE LEUKOCYTES-REFLEX 1+ (Negative); URINE NITRITE-REFLEX POSITIVE (Negative)
[2019-03-15 16:32] LABS: AMORPHOUS URATES Few /LPF (None Seen); BACTERIA-REFLEX >30 Many /HPF (None Seen); CRYSTALS None Seen /LPF (None Seen); HYALINE CASTS 0-3 Few /LPF (None Seen); MUCUS 0-3 Light strn/LPF (None Seen); SQUAMOUS 0-3 Few /LPF (0-3); URINE RBC 0-2 Rare /HPF (0-2); WBC CLUMPS Few (None Seen)
[2019-03-15 16:43] LABS: AMP/METHAMP Negative (Negative); BARBITURATES Negative (Negative); BENZODIAZEPINES Negative (Negative); COCAINE Negative (Negative); METHADONE Negative (Negative); OPIATES Negative (Negative); PCP Negative (Negative)
[2019-03-15 17:25] VITALS: BP 110/44
[2019-03-15 18:13] VITALS: BP 145/80
--- NOTE | 2019-03-15 18:23 | NUR ---
DINNER TRAY REQUESTED TO ROOM 212
[2019-03-15 19:03] VITALS: BP 134/44
[2019-03-15 22:23] LABS: CREATININE 0.6 mg/dL (0.6-1.0)
[2019-03-16 00:49] VITALS: BP 113/62
--- NOTE | 2019-03-16 01:12 | NUR ---
PATIENT AOX4 MAKES MAKES NEEDS KNOWN. PATIENT SLEPY THIS SHIFT. BLE EDEMA +1 ELEVATED BLE. PATIENT HAD CRITICAL LOW SODIUM 119 AND LOW POTTASSIUM. CALLED DR. MCDOWELL NEW ORDER NORMAL SALINE WITH 40 MEQ OF POTTASSIUM, CBC WITH DIFF, AND BMP. FLUIDS RUNNING AT THIS TIME. PATIENT DENIED PAIN OR DISCOMFORT.PATIENT INCONTIENT THIS SHIFT PERICARE AND BARRIER CREAM APPLIED NEEDED.PATIENT IN BED ASLEEP AT THIS TIME BREATHING REGULAR AND UNLABOURED.
[2019-03-16 05:30] VITALS: BP 115/51
[2019-03-16 07:13] VITALS: BP 151/65
[2019-03-16 07:18] LABS: ABSOLUTE NEUTROPHILS 7.5 thou/uL (1.4-8.2); BASOPHILS 0.7 % (0.0-2.0); EOSINOPHILS 0.3 % (0.0-3.0); HEMATOCRIT 33.6 % (37.0-47.0); HEMOGLOBIN 11.5 gm/dL (12.0-15.0); MCH 28.3 pg (26.0-34.0); MCHC 34.1 g/dL (28.0-37.0); MONOCYTES 6.7 % (1.0-8.0); PLATELET COUNT 353 thou/uL (150-400); POLYS 77.3 % (36.0-66.0); RBC 4.05 mil/uL (4.20-5.00); RDW 13.8 % (10.5-14.5); WBC 9.7 thou/uL (4.0-11.0)
[2019-03-16 07:28] LABS: CREATININE 0.3 mg/dL (0.6-1.0)
[2019-03-16 07:32] LABS: POTASSIUM 4.3 mmol/L (3.5-5.1)
--- NOTE | 2019-03-16 11:09 | EKG ---
[facility] [place] [address] ELECTROCARDIOGRAM REPORT Name: CARSON GUERRERO Room #: 212-P ADM IN M.R.#: [id number] Admission: 03/15/19 Attend Phys: Anatoly Osuna MD, FAAF Discharge: Date of : 50 Report #: [id number] THIS REPORT FOR: //name// [facility] ED Test Date: 2019-03-15 Test Time: 15:04:33 Pat Name: CARSON GUERRERO Department: Room: [facility] Gender: F Composite Engineer: JAY : 1950 Requested By: Franko Bar Order Number: [id number] MD: Ruperto Bunch Measurements Intervals [place] Rate: 83 P: 81 ME: 187 QRS: 8 QRSD: 169 T: 80 QT: 450 QTc: 529 Interpretive Statements Sinus rhythm Left bundle branch block Compared to ECG 03/01/2019 07:34:15 No significant changes Electronically Signed On 03-16-2019 11:09:10 CDT by Ruperto Bunch [email or web address] <ELECTRONICALLY SIGNED> By: Ruperto Bunch MD, [facility] 03/16/19 1109 1504 1504 Ruperto Bunch MD, FACC /EPI
[2019-03-16 11:16] VITALS: BP 136/61
[2019-03-16 15:15] VITALS: BP 121/63
--- NOTE | 2019-03-16 15:34 | NUR ---
PT IS A&0X4, IS NOT IMPULSIVE THUS FAR, USES CALL LIGHT FOR NEEDS, WEAKNESS, ADMIT YESTERDAY EVENING, MED REC HAS BEEN REVIEWED ALTHOUGH NO MEDS ORDERED YET, SHE ANTICIPATED SOMEONE BRINGING ONE OF HER PSYCHE MEDS THAT SHE NEEDS SO WE CAN REC AN ORDER FOR IT AND SEND TO PHARMACY. NOTED ADMIT PAPERS IN CHART UNSIGNED, WILL GIVE TO HER THIS SHIFT AND COMPLETE. ON 02 2L VT AND USES THIS AT HOME. CARDIAC MONITORED, WILL CONTINUE TO MONITOR AND DO CARES NEEDED
--- NOTE | 2019-03-16 16:12 | NUR ---
COMMUNICATED W/PHYSICIAN ON RE-STARTING HOME MEDS, HE AGREED, THEN DISCOVERED NURSING DOESN'T HAVE THE AUTHORIZATION TO RE-DO THE MEDS, OR SELECT CONTINUE. CALLED DR. MCDOWELL BACK AND HE'LL BE IN THE HOSPITAL LATER ON IN THE SHIFT; ORDERED HER TWO BAGS OF NS W/40MEQ OF K+
[2019-03-16 20:20] VITALS: BP 139/61
[2019-03-16] MEDS ORDERED: FANAPT10 MG PO ×2 (21:43→21:45)
[2019-03-17 00:03] VITALS: BP 128/55
[2019-03-17 04:46] VITALS: BP 139/59
--- NOTE | 2019-03-17 05:06 | NUR ---
PATIENTS CARES WERE ASSUMED AT SHIFT CHANGE. PATIENT WAS ASSESSED AND MEDS WERE PASSED. HOURLY ROUNDING WAS DONE. MED REC COMPLETED AND APPROVED BY DR. MCDOWELL. TELEPHONE ORDERS WERE GIVEN AND ACTOVATED. THE BED IS IN A LOW AND LOCKED POSITION.
[2019-03-17 08:19] VITALS: BP 138/48
--- NOTE | 2019-03-17 14:49 | NUR ---
ASSUMED CARE OF PT APPROX 0715, A&0X4, ENCOURAGED TO USE CALL LIGHT FOR ANY NEEDS, AMB W/MAX ASSIST W/SOME STAFF, CLOSE SBA W/OTHERS, USING BEDPAN AND BSC. IN GOOD SPIRITS. LATER IN SHIFT CALLED DR. MCDOWELL FOR PT/OT EARL, ENTERED ORDER FOR HER MOM (SHE HAD A VERY VERY LARGE BM THIS A.M.) SO MOM RETURNED TO MED BIN. IVF RUNNING, ON SECOND, LAST, BAG. ALSO FYI TO PHYSICIAN ON ROCEPHIN HAVING BEEN ONE TIME STAT ORDER FOR UTI YET NONE ON EMAR FOR CONTINUATION.
[2019-03-17 15:28] LABS: HEMATOCRIT 35.3 % (37.0-47.0); HEMOGLOBIN 11.8 gm/dL (12.0-15.0); MCH 28.4 pg (26.0-34.0); MCHC 33.5 g/dL (28.0-37.0); MCV 84.9 fL (80.0-100.0); RBC 4.15 mil/uL (4.20-5.00); RDW 14.1 % (10.5-14.5); WBC 9.3 thou/uL (4.0-11.0)
[2019-03-17 15:38] LABS: CALCIUM 8.7 mg/dL (8.5-10.1); CREATININE 0.6 mg/dL (0.6-1.0)
[2019-03-17 19:20] VITALS: BP 134/47
[2019-03-17 20:12] VITALS: BP 128/49
--- NOTE | 2019-03-18 03:44 | NUR ---
ASSESSMENT DOCUMENTED.PT BEEN RESTING IN NO ACUTE DISTRESS.A/OX4.VSS.PT ON ABT THERAPY,TOLERATING W/O ADVERSE RXN.VOIDS VIA BEDPAN.PT/OT TO SEE PT TODAY.SR ON MONITOR.ON O2 AT 2LITERS PNC,NO RESP DISTRESS NOTED.POC IS TO CONTINUE WITH CURRENT POC.
[2019-03-18 07:32] VITALS: BP 144/55
--- NOTE | 2019-03-18 10:37 | NUR ---
Assess due to high BMI of 43.6=extreme class III obesity. Admit with electrolyte abnormalities which are being corrected. Wt down about 10 lb x 8 mo which is beneficial. On carb controlled diet, BG 108-138 controlled. Resides in halfway. Consider low nutritin risk
--- NOTE | 2019-03-18 12:31 | H ---
[facility] [place] [address] HISTORY AND PHYSICAL Name: CARSON GUERRERO Room #: 212-P [facility] IN M.R.#: [id number] Admission: 03/15/19 Attend Phys: Anatoly Osuna MD, FAAF Discharge: Date of : 50 Report #: [id number] THIS REPORT FOR: //name// CC: Anatoly Osuna DATE OF SERVICE: 03/15/2019 CHIEF COMPLAINT: UTI; hyponatremia; hypokalemia. HISTORY OF PRESENT ILLNESS: The patient fell at [facility] on the day of admission, was brought to the Emergency Room at [facility] by ambulance. This is her second fall or syncopal episode in the past few weeks. I saw her in the Emergency Room on the day of admission. She does have a urinary tract infection, very low sodium at 116 and low potassium at 2.8. She was started on IV fluids with electrolyte replacement, IV cefepime for her urinary tract infection, and she was admitted to telemetry. PAST MEDICAL HISTORY: Major depression, generalized anxiety disorder, hypothyroidism, hypercholesterolemia, insomnia, hypertension, lumpectomy, tonsillectomy, neuropathy, weak legs. MEDICATIONS: Lasix 20 mg 1 p.o. q.a.m., hydrochlorothiazide 25 mg 1 p.o. q.a.m., omega-3 at 1400 mg 1 p.o. daily, Prosight tablets 1 p.o. daily, Lamictal 100 mg 1 p.o. at bedtime, simvastatin 40 mg 1 p.o. at bedtime, Vistaril 50 mg 1 p.o. at bedtime, Trileptal 600 mg 1 p.o. b.i.d., ropinirole 1 mg 1 p.o. at bedtime, CoQ10 at 100 mg 1 p.o. daily, potassium chloride 20 mEq p.o. q. day, Mag-Ox 400 mg 1 p.o. b.i.d., levothyroxine 112 mcg 1 p.o. daily, ibuprofen 400 mg 1 p.o. q. 4 hours p.r.n. pain, Tylenol 500 mg 2 p.o. q. 4 hours p.r.n. pain, limit 3 g for 24 hours; ProAir HFA 2 puffs q. 4 hours p.r.n., loratadine 10 mg 1 p.o. daily, metformin 500 mg 1 p.o. b.i.d., Fanapt 10 mg 1 p.o. b.i.d., Topamax 25 mg 1 p.o. b.i.d., oxybutynin 5 mg 1 p.o. t.i.d., trazodone 200 mg 1 p.o. at bedtime. ALLERGIES: ULTRAM, PERCOCET AND SARA INHIBITORS. SOCIAL HISTORY: Resident at [facility]. FAMILY HISTORY: Noncontributory. REVIEW OF SYSTEMS: GENERAL: No fever, chills, nausea, vomiting or diarrhea. She is lethargic and weak. EYES: No visual changes. ENT: No problems with hearing, swallow, taste or smell. CARDIOVASCULAR: No chest pain or palpitations. RESPIRATORY: No difficulty breathing. [address] [address] HISTORY AND PHYSICAL Name: CARSON GUERRERO Room #: [facility] IN M.R.#: [id number] Admission: 03/15/19 Attend Phys: Anatoly Osuna MD, FAAF Discharge: Date of : 50 Report #: [id number] GASTROINTESTINAL: No abdominal pain. GENITOURINARY: No problems urinating. She does have a urinary tract infection. MUSCULOSKELETAL: No muscle or joint pain. NEUROLOGIC: No paresis, paralysis or paresthesia. She did fall on the day of admission. PSYCHIATRIC: Depression and anxiety. DERMATOLOGIC: No disturbing lesions or rash. Remainder of system review is negative. PHYSICAL EXAMINATION: VITAL SIGNS: Stable. She is in no acute distress. HEENT: Pupils equal, round, reactive to light and accommodation. Extraocular muscles intact. Pharynx unremarkable. NECK: Supple. COR: S1, S2. CHEST: Clear. ABDOMEN: Soft, nontender. EXTREMITIES: No edema. NEUROLOGIC: She is intact without focal deficit. PERTINENT LABORATORY DATA: Sodium is 116, potassium 2.8. Urine appears infected. Chest x-ray from the Emergency Department, no acute process. ASSESSMENT: Urinary tract infection, hyponatremia, hypokalemia, fall. PLAN: Admit to the hospital, IV cefepime, electrolyte correction with IV fluids. Follow culture results and longitudinal lab studies; consider medications that are likely contributing to her electrolyte disturbances. <ELECTRONICALLY SIGNED> By: Anatoly Osuna MD, AGATA, FACEP 03/18/19 1231 30 44 Anatoly Osuna MD, AGATA, FACEP /nt
[2019-03-18 13:30] VITALS: BP 111/41
[2019-03-18 16:20] VITALS: BP 124/42
--- NOTE | 2019-03-18 16:24 | NUR ---
met with patient who resides at [facility]. Patient has Bipolar and involved with [facility]. Patient reports she goes to [facility] M-F - and on / she goes to [facility] which is recreational center gym in [place]. She reports program with [facility] were they transport. She goes to [facility] / in morning prior to [facility] for and hour and /2. Patient has home oxygen usu at night with activity usu at 2L. Attempted to sp with [facility] [phone] but busy. [facility] following.
[2019-03-18 20:57] VITALS: BP 121/49
[2019-03-19 04:29] VITALS: BP 133/64
[2019-03-19 05:46] LABS: CREATININE 0.6 mg/dL (0.6-1.0); POTASSIUM 3.9 mmol/L (3.5-5.1)
--- NOTE | 2019-03-19 05:46 | NUR ---
PATIENTS CARES WERE ASSUMED AT SHIFT CHANGE. PATIENT WAS ASSESSED AND MEDS WERE PASSED. PATIENT REQUESTED HER COUGH MEDS AT BEDTIME. REQUESTED A BUBBLER ON O2 TO HELP HER. HOURLY ROUNDING WAS DONE. THE BED IS IN A LOW AND LOCKED POSITION. THE BED ALARM IS ON.
[2019-03-19 11:14] VITALS: BP 145/51
--- NOTE | 2019-03-19 14:55 | NUR ---
spoke with Lilo director of [facility]. She reports patient would benefit from outpatient therapy. She can transport to/from outpatient therapy. Rediscover is not mandatory and patient may benefit from outpatient therapy. need script from dr zaman for outpatient therapy.
[2019-03-19 15:31] VITALS: BP 141/53
--- NOTE | 2019-03-19 19:37 | NUR ---
ASSUMED CARE AT 0700. PT A&OX4. PT ON 2L NC. PT DENIES PAIN. PT GETS UP X1 ASSIST AND WALKER TO BEDSIDE COMMODE AND CHAIR IN ROOM. PT SAFETY MAINTAINED WITH USE OF FALL PRECAUTIONS. PT CALL LIGHT IN REACH. PT IS VERY WILLING TO PARTICIPATE WITH THERAPY AND STATES SHE WANTS TO GET STRONGER.
[2019-03-19 19:48] VITALS: BP 145/76
[2019-03-20 04:42] VITALS: BP 118/53
--- NOTE | 2019-03-20 05:16 | NUR ---
PT REPORTS INSOMNIA OVER NIGHT. RECIEVED SCHEDULED TRAZODONE. DENIES PAIN. VOIDING TO BEDSIDE COMMODE WITH SOME STRESS INCONTINANCE. VITALS STABLE. NOTICED LEFT FOOT MORE EDEMATOUS, ITCHY, AND RED. ;PT DENIES PAIN IN THIS FOOT, AND NO FEVER. WILL CONTINUE TO FOLLOW POC.
[2019-03-20 08:13] VITALS: BP 133/66
[2019-03-20 12:13] VITALS: BP 138/48
[2019-03-20 16:53] VITALS: BP 145/49
--- NOTE | 2019-03-20 17:49 | NUR ---
PT UP TO CHAIR AND STATED SHE IS FEELING STOINGER TODAY. TOLERATING PO WELL.
[2019-03-20 20:29] VITALS: BP 141/53
[2019-03-21 05:02] LABS: CALCIUM 8.8 mg/dL (8.5-10.1); CREATININE 0.6 mg/dL (0.6-1.0); POTASSIUM 3.7 mmol/L (3.5-5.1)
--- NOTE | 2019-03-21 05:12 | NUR ---
PT ALERT AND ORIENTED . REPORTS HEADACHE PAIN. SCHEDULED IBUPROFEN GIVEN. RECEIVED 1BAG OF NS. VITALS STABLE. DENIES N/V/D. VOIDS BY BEDSIDE COMMODE. HYPONATREMIA THIS MORNING. WILL UPDATE DR. MCDOWELL. NO FURTHER C/O. WILL CONTINUE TO FOLLOW POC.
[2019-03-21 06:37] VITALS: BP 115/53
[2019-03-21 08:33] VITALS: BP 126/71
[2019-03-21 11:57] VITALS: BP 128/36
[2019-03-21 12:07] VITALS: BP 128/36
[2019-03-21 13:31] VITALS: BP 128/36
--- NOTE | 2019-03-21 13:47 | NUR ---
patient with possible dc home. faxed script for outpatient therapy to outpatient therapy at [facility]. Placed script in chart copy.
--- NOTE | 2019-03-21 15:45 | NUR ---
PT IS ALERT AND ORIENTED X4. LUGNS ARE COARSE ON 2 LITERS OXYGEN. SINUS BRADYCARDIA ON THE MONITOR. EATING A CARB CONTROL DIET AND TOELRATING WELLL. PHYSIICAL THERAPY WORKED WITH PT. PT WATCHING TV AND CALL LIGHT WITHN REACH IF NEEDS ASSISTANCE. 2 PLUS GENERAL EDEMA NOTED. USES A WALKER TO GET AROUND WITH MINIMAL ASSISTANCE.
[2019-03-21 20:05] VITALS: BP 111/31
--- NOTE | 2019-03-22 04:38 | NUR ---
PT RESTING IN BED. REMAINS ON 2L NC. PT CONTINUES ON MAINTENANCE IVFs AND TOLERATING WELL. PT SR/SB W/BBB ON MONITOR. AM LABS TO BE REVIEWED.
[2019-03-22 04:40] LABS: CALCIUM 8.3 mg/dL (8.5-10.1); CREATININE 0.5 mg/dL (0.6-1.0); POTASSIUM 3.7 mmol/L (3.5-5.1)
[2019-03-22 04:45] VITALS: BP 120/45
[2019-03-22 07:53] VITALS: BP 134/56
--- NOTE | 2019-03-22 13:49 | NUR ---
DC on hold d/t sodium level and IVF. If the pt is dc ready over the weekend, Lilo will need to be contacted to pickup the pt [phone]. She will need a copy of her dc summary/dc instructions with the chart copy and outpt therapy script to be sent home with her.
[2019-03-22 14:10] VITALS: BP 115/55
--- NOTE | 2019-03-22 19:19 | NUR ---
ASSUMED CARE THIS AM, AWAKE AND ALERT. NO COMPLAINTS OF PAIN OR NAUSEA. SR ON MONITOR. UP WITH ASSIST TIMES 1 AND WALKER. SODIUM LEVEL STILL 126. SPOKE WITH DR. MCDOWELL AND HE WILL NOT DISCHARGE UNTIL SODIUM LEVEL IS IMPROVED. WILL RECHECK IN AM.
[2019-03-22 20:00] VITALS: BP 142/51
[2019-03-23 05:00] VITALS: BP 123/51
[2019-03-23 05:26] LABS: CREATININE 0.4 mg/dL (0.6-1.0)
[2019-03-23 07:24] VITALS: BP 162/51
--- NOTE | 2019-03-23 08:23 | NUR ---
ASSUME CARE 1900. PT STABLE. DENIES ANY PAIN. POOR TILERANCE TO ACTIVITY AND POOR EFFORT TOWARDS TRYING. ADEQUATE REST NOTED THROUGH THE NIGHT. SODIUM RUNS LOW AT 122 THIS AM. ASSESSMENT CHARTED. PLAN IS POSSIBLE DISCHARGE TODAY BACK TO [facility].WILL CONTINUE TO MONITOR AND FOLLOW WITH POC
[2019-03-23 11:55] VITALS: BP 133/61
[2019-03-23 15:33] VITALS: BP 145/59
--- NOTE | 2019-03-24 03:13 | NUR ---
A/O X 4.DENIES PAIN AND SOB.ON O2 2L NC.COMPLAIN OF COUGH AND SPECIFICALLY ASKED FOR ISIDRO JOYNER,GOT AN ORDER AND WAS GIVEN.NS AT 100 ML/HR INFUSING.REFUSED BLOOD SUGAR CHECK AT BEDTIME.MONITOR SHOWS SB/SR WITH BBB.WILL MONITOR AND CONTINUE POC.
[2019-03-24 05:38] LABS: CALCIUM 7.6 mg/dL (8.5-10.1); CREATININE 0.4 mg/dL (0.6-1.0); POTASSIUM 3.4 mmol/L (3.5-5.1)
[2019-03-24 07:22] VITALS: BP 139/51
[2019-03-24 11:39] VITALS: BP 132/49
[2019-03-24 15:27] VITALS: BP 136/67
--- NOTE | 2019-03-24 18:24 | NUR ---
PT CARE ASSUMED APPROX 0700. PT ALERT AND ORIENTED X4. DENIES PAIN AND SOA. VSS. BS WNL. MOOD APPROPRIATE. PT UP TO CHAIR X1 MOD ASSIST THIS SHIFT. CHANGES TO POC. IVF STOPPED AND LASIX GIVEN. ALSO POTASSIUM FREQUENCY INCREASED FOR REPLACEMENT OF LEVEL 3.4. PT ASYMPTOMATIC OF LOW NA+ AND LOW K+. PT HAD AUDIBLE WHZ AND CRACKLES NOTED TO BREATH SOUNDS. CXR ORDERED PER DR CAMPOS. RESULTS CALLED TO HIM ORDERED AND POC CHANGES MADE STATED ABOVE. PT TOLERATING POC CHANGES AND DENIES QUESTIONS/CONCERNS REGARDING CHANGES. PT EDUCATED ON I.S. COMPLIANT WITH USE AT THIS TIME. NO DISTRESS NOTED.
[2019-03-24 19:34] VITALS: BP 119/51
[2019-03-24 20:22] LABS: CALCIUM 8.5 mg/dL (8.5-10.1); CREATININE 0.6 mg/dL (0.6-1.0)
[2019-03-25 03:50] VITALS: BP 118/44
--- NOTE | 2019-03-25 05:13 | NUR ---
STAT BMP WAS ORDERED BY DR CAMPOS.RESULTS CALLED BUT APPARENTLY DR DIDN'T GET THE MESSAGE THRU ANSWERING SERVICE.DR CAMPOS CALLED AROUND MIDNIGHT AND READ THE RESULT TO HIM.PT STATES COUGH SYRUP WORKS BETTER THAN TESSALON PERLES.COMPLAIN OF ITCHING.HYDROXYZINE GIVEN AND VERBALIZED RELIEF.MONITOR SHOWS SR/SB.WILL MONITOR AND CONTINUE POC.
[2019-03-25 05:21] LABS: ABSOLUTE NEUTROPHILS 2.7 thou/uL (1.4-8.2); EOSINOPHILS 4.1 % (0.0-3.0); HEMATOCRIT 32.4 % (37.0-47.0); HEMOGLOBIN 10.8 gm/dL (12.0-15.0); LYMPHOCYTES 31.8 % (24.0-44.0); MCH 28.3 pg (26.0-34.0); MCHC 33.3 g/dL (28.0-37.0); MCV 85.1 fL (80.0-100.0); MONOCYTES 11.4 % (1.0-8.0); PLATELET COUNT 262 thou/uL (150-400); POLYS 51.7 % (36.0-66.0); RBC 3.81 mil/uL (4.20-5.00); RDW 13.9 % (10.5-14.5); WBC 5.3 thou/uL (4.0-11.0)
[2019-03-25 05:39] LABS: ALBUMIN 2.6 g/dL (3.4-5.0); CALCIUM 7.9 mg/dL (8.5-10.1); CREATININE 0.5 mg/dL (0.6-1.0); POTASSIUM 4.4 mmol/L (3.5-5.1); TOTAL BILIRUBIN 0.1 mg/dL (<0.1-1.0); TOTAL PROTEIN 5.7 g/dL (6.4-8.2)
[2019-03-25 08:38] VITALS: BP 111/38
[2019-03-25 11:44] VITALS: BP 130/34
[2019-03-25 15:31] VITALS: BP 112/42
--- NOTE | 2019-03-25 17:21 | NUR ---
PT CARE ASSUMED APPROX 0700. PT ALERT AND ORIENTED X4. DENIES PAIN AND SOA. PT BRADYCARDIC BUT ASYMPTOMATIC. VS OTHERWISE STABLE. PT COMPLIANT WITH USE OF I.S. NO PROGRESSION NOTED WITH CURRENT RATE OF 5OO. GOAL SET TO 1000. UP TO CHAIR MOST OF SHIFT. AMBULATED WITH P/T AND TOLERATED WELL. PT TOLERATING POC. NO CHANGES NOTED TO POC. UP TO BSC WITH MOD ASSIST X1 AND WALKER. DENIES QUESTIONS OR CONCERNS AT THIS TIME. NO DISTRESS NOTED.
[2019-03-25 19:42] VITALS: BP 116/36
[2019-03-26 04:14] VITALS: BP 117/53
[2019-03-26 05:39] LABS: CALCIUM 8.2 mg/dL (8.5-10.1); CREATININE 0.5 mg/dL (0.6-1.0); POTASSIUM 4.8 mmol/L (3.5-5.1)
--- NOTE | 2019-03-26 06:05 | NUR ---
PATIENTS CARES WERE ASSUMED AT SHIFT CHANGE. PATIENT WAS ASSESSED AND MEDS WERE PASSED. DUE TO PATIENT CONFUSION LOOKED INTO ANY ORDER TO DO ACCU CHECKS. THERE IS NO ORDERS TO DO ACCUE CHECKS.HOURLY ROUNDING WAS DONE AND PATIENT DID APPER TO BE SLEEPING MOST OF THIS SHIFT. THE BED IS IN A LOW AND LOCKED POSITION. THE BED ALARM IS ON.
[2019-03-26 08:41] VITALS: BP 141/43
--- NOTE | 2019-03-26 11:01 | NUR ---
Seen for follow up. Continues on carb controlled diet w/ 1500 ml fluid restriction. PO and appetite excellent. Eating 100% of all meals the last 2 consecutive days. BGs no longer being checked, but ranged 104-137 mg/dl 03/24 - 03/25. Pt reports BM yesterday, 03/25. Encouraged pt to keep selecting at least 1 protein source/meal d/t longer hospital stay. No new nutrition questions or needs voiced. Remains low nutrition risk.
[2019-03-26 12:22] VITALS: BP 139/55
[2019-03-26 16:23] VITALS: BP 143/115
[2019-03-26] MEDS ORDERED: OXCARBAZEPINE300 MG PO (18:05)
[2019-03-26 18:18] VITALS: BP 128/36
--- NOTE | 2019-03-26 18:22 | NUR ---
PT CARE ASSUMED APPROX 0700. PT ALERT AND ORIENTED X4. DENIES PAIN AND SOA. VSS. UP TO CHAIR FOR MEALS THIS SHIFT. AMBULATED WITH P/T. PT TOELRATED POC WELL. ORDERS TO DISCHARGE AT THIS TIME. PAPERWORK REVIEWED WITH PT. SHE DENIES QUESTIONS OR CONCERNS REGARDING POST HOSPTIAL CARES AND F/U. CAREGIVER NOTIFIED THAT PT NEEDS TRANSPORTATION HOME. CAREGIVER REPORTS THAT SHE'LL BE HERE TO TRANSPORT PT HOME TIMELY. NO DISTRESS NOTED. IV OUT, TELE BOX OFF.
--- NOTE | 2019-04-08 08:40 | HC ---
[facility] [place] [address] CONSULTATION Name: CARSON GUERRERO Room #: 212-P [facility] IN M.R.#: [id number] Admission: 03/15/19 Attend Phys: [facility]una MD, [facility] Discharge: 03/26/19 Date of : 50 Report #: [id number] THIS REPORT FOR: //name// CC: Anatoly Osuna DATE OF SERVICE: 03/26/2019 NEPHROLOGY CONSULTATION REASON FOR CONSULTATION: Hyponatremia. HISTORY OF PRESENT ILLNESS: The patient has difficulty with ongoing hyponatremia, serum sodium as low as 116 on admission, fell to 122 during the admission, which was treated with saline, is now up to 128. She is on multiple psychiatric medications with history of depression and anxiety. She had been admitted with urinary infection, which is doing better. The patient has had some trouble with hypertension as well as compulsive thirst. She also has had some trouble with restless legs. We are asked to see her about her difficulties with hypo-osmolar syndrome. PAST MEDICAL HISTORY: She has had some hypertension. She has had the psychiatric disorders as mentioned and frequent urinary tract infections. Lives in a detention. Denies diabetes, although she has been on metformin. She has had what she claims are benign lumps removed from her breasts and history of hypothyroidism. SOCIAL HISTORY: No cigarettes or alcohol. Lives at a detention. FAMILY HISTORY: Positive for strokes and myocardial infarctions as well as diabetes. REVIEW OF SYSTEMS: GENERAL: Currently, she is feeling well. EYES: Her vision is okay. ENT: Hearing okay, swallows okay. No mouth sores. ENDOCRINE: Denies diabetes. RESPIRATORY: Denies shortness of air. CARDIAC: No chest pain, angina or history of myocardial infarction. GASTROINTESTINAL: No nausea, vomiting, diarrhea or bloody stools. GENITOURINARY: No current dysuria, hematuria or renal stones. NEUROLOGIC: No history of seizure, syncope or stroke. PSYCHIATRIC: She has had depression and anxiety as mentioned. PHYSICAL EXAMINATION: GENERAL: This is a comfortable, lucid-appearing patient, in no acute distress. [facility] [address] [place] [address] CONSULTATION Name: CESARCARSON Contreras Room #: 212-P [facility] IN M.R.#: [id number] Admission: 03/15/19 Attend Phys: Anatoly Osuna MD, FAAF Discharge: 03/26/19 Date of : 50 Report #: [id number] SKIN: Unremarkable. SKELETAL: Rather obese. HEENT: Extraocular movements are full. No scleral icterus. Hearing and vision intact. Mucous membranes moist. Tongue, buccal mucosa benign. NECK: Neck veins are flat. No lymphadenopathy or carotid bruits. CHEST: Clear to auscultation. HEART: Regular. ABDOMEN: Soft. EXTREMITIES: Show no peripheral edema. NEUROLOGIC: Grossly intact. LABORATORY DATA: Sodium 128. No urine studies available. Creatinine 0.5. ASSESSMENT AND PLAN: Hypo-osmolar syndrome. She has difficulty with free water clearance secondary to medications. She has been on thiazide for that. She has been on nonsteroidals. She needs to get off of those and she has been on Trileptal, which of course is the major culprit in terms of an abnormally concentrated urine. She has been tapered off the Trileptal. She can be on furosemide if necessary, not hydrochlorothiazide. She should be on a bit of a fluid restriction 1500 mL or less that needs to be titrated. I do not think she has any trouble with her being discharged home. <ELECTRONICALLY SIGNED> By: Wesly Connolly MD 04/08/19 0840 [id number] [id number] Wesly Connolly MD /nt
== END 2019-03-26 19:42 | disposition home or self-care (01) | DRG 689 ==
LOC: ER 14:55 → EROBS 16:56 → 2N 16:56
PROVIDERS: Emergency Medicine; Internal Medicine; Nurse Practitioner Family; ADMIT Family Medicine
DX: N39.0 Urinary tract infection, site not specified (principal); E43 Unspecified severe protein-calorie malnutrition; E87.1 Hypo-osmolality and hyponatremia; Z68.41 Body mass index [BMI] 40.0-44.9, adult; Z96.1 Presence of intraocular lens; I10 Essential (primary) hypertension; E78.5 Hyperlipidemia, unspecified; F32.9 Major depressive disorder, single episode, unspecified; E87.6 Hypokalemia; G25.81 Restless legs syndrome; E03.9 Hypothyroidism, unspecified; F41.1 Generalized anxiety disorder; E78.00 Pure hypercholesterolemia, unspecified; G47.00 Insomnia, unspecified; G62.9 Polyneuropathy, unspecified; B96.20 Unspecified Escherichia coli [E. coli] as the cause of diseases classified elsewhere; E66.9 Obesity, unspecified; F99 Mental disorder, not otherwise specified; Z98.42 Cataract extraction status, left eye; Z98.41 Cataract extraction status, right eye; Z90.89 Acquired absence of other organs; Z79.84 Long term (current) use of oral hypoglycemic drugs; Z79.899 Other long term (current) drug therapy; Z88.8 Allergy status to other drugs, medicaments and biological substances; Z87.440 Personal history of urinary (tract) infections; Z82.3 Family history of stroke; Z82.49 Family history of ischemic heart disease and other diseases of the circulatory system; Z83.3 Family history of diabetes mellitus; W18.39XA Other fall on same level, initial encounter; Y93.89 Activity, other specified; Y92.89 Other specified places as the place of occurrence of the external cause; Y99.8 Other external cause status
CPT/HCPCS: 10081

== ENCOUNTER → 2019-08-29 | Outpatient (CLI) | payer OTHER ==
[~2019-08-29] MED LIST changes: +OXCARBAZEPINE300 MG PO
== END ==
LOC: BC 08:00
DX: Z12.31 Encounter for screening mammogram for malignant neoplasm of breast (principal)

== ENCOUNTER 2020-12-06 23:25 | Inpatient (IN) | payer OTHER ==
[~2020-12-06] VITALS: Ht 160 cm; Wt 77.7 kg
--- NOTE | ~2020-12-06 | EMS ---
[facility] [address] [place] [address] EMS Patient Care Report Name: CARSON GUERRERO Room #: REG YESSY Carrera#: [id number] Admission: 12/06/20 Attend Phys: Discharge: Date of : 50 Report #: [id number] THIS REPORT FOR: //name// Report Transmitted: 12/07/2020 00:07 EMS Care Summary [place], [place]/[facility] Incident [id number] @ 12/06/2020 22:57 Incident Location [address] [place] [address] Patient CARSON GUERRERO Female, 70 Years 1950 Patient Address [address] [place], [place] [id number] Patient History Depression, Patient Allergies Lisinopril,Percocet, Patient Medications Levothyroxine, Chief Complaint hip pain Disposition Transported No Lights/[place] Dispatch Reason Falls Transported To [facility] Narrative ems met staff and pt. pt found sitting upright in chair and alert. pt a&ox4 gcs 15 and did not present in apparent distress. pt stated she fell at around 1000. neg loc. stated she hit her head and landed on her back side. pt now complains of L hip pain and vomited once. neg blood thinners. pt requested to be [facility] [address] [place] [address] EMS Patient Care Report Name: CARSON GUERRERO Room #: REG YESSY Carrera#: [id number] Admission: 12/06/20 Attend Phys: Discharge: Date of : 50 Report #: [id number] transported to [facility]. pt was transferred onto ems cot and was secured in a semi fowlers position without incident. pt was loaded into ambulance. pt was transported non emergent. pt stated her bp normally runs low. transport was uneventful and pt rested on ems cot. pt care was transferred to appropriate staff and ems goes back in service. Initial Vitals @23:12P: 82,R: 20,BP: 96/62,Pain: 0/10,GCS: 15,SpO2: 96,Revised Trauma: 12, @23:20P: 86,R: 20,BP: 92/64,GCS: 15,SpO2: 96,Revised Trauma: 12, Assessments @23:09MENTAL:No Abnormalities,SKIN:No Abnormalities,HEENT:Head/Face: No Abnormalities,Eyes: No Abnormalities,Neck/Airway: No Abnormalities,LUNG SOUNDS:General: No Abnormalities,Left Upper: No Abnormalities,Right Upper: No Abnormalities,Left Lower: No Abnormalities,Right Lower: No Abnormalities,ABDOMEN:General: No Abnormalities,Left Upper: No Abnormalities,Right Upper: No Abnormalities,Left Lower: No Abnormalities,Right Lower: No Abnormalities,PELVIS//GI:No Abnormalities,EXTREMITIES:Left Arm: No Abnormalities,Right Arm: No Abnormalities,Left Leg: No Abnormalities,Right Leg: No Abnormalities,PULSE:NEURO:No Abnormalities,@23:20MENTAL:No Abnormalities,SKIN:No Abnormalities,HEENT:Head/Face: No Abnormalities,Eyes: No Abnormalities,Neck/Airway: No Abnormalities,LUNG SOUNDS:General: No Abnormalities,Left Upper: No Abnormalities,Right Upper: No Abnormalities,Left Lower: No Abnormalities,Right Lower: No Abnormalities,ABDOMEN:General: No Abnormalities,Left Upper: No Abnormalities,Right Upper: No Abnormalities,Left Lower: No Abnormalities,Right Lower: No Abnormalities,PELVIS//GI:No Abnormalities,EXTREMITIES:Left Arm: No Abnormalities,Right Arm: No Abnormalities,Left Leg: No Abnormalities,Right Leg: No Abnormalities,PULSE:NEURO:No Abnormalities, Impression Injury of Hip Procedures @23:09ALS AssessmentResponse: UnchangedSucceeded Timeline 22:55,Call Received 22:55,Dispatch Notified 22:57,Dispatched 22:58,En Route 23:08,On Scene 23:09,At Patient 23:09,ALS Assessment,Response: UnchangedSucceeded, 23:12,BP: 96/62 M,PULSE: 82,RR: 20 R,SPO2: 96 Ox,ETCO2: ,BG: ,PAIN: 0,GCS: 15, 23:15,[place] [address] EMS Patient Care Report Name: CARSON GUERRERO Room #: REG Ze.R.#: [id number] Admission: 12/06/20 Attend Phys: Discharge: Date of : 50 Report #: [id number] 23:20,BP: 92/64 M,PULSE: 86,RR: 20 R,SPO2: 96 Ox,ETCO2: ,BG: ,PAIN: ,GCS: 15, 23:22,At Destination 23:31,Call Closed Disclaimer v1.1 Copyright 2020 [employer] This EMS Care Summary contains data elements from the applicable legal record (which may be displayed differently). It is designed to provide pertinent information for the following purposes: continuity of care, clinical quality, and state data reporting. The complete legal record is available to ED staff and administrators of the receiving hospital in [employer]'s Patient Tracker. All data is provided "as is."
[2020-12-06 23:29] VITALS: BP 107/53
[2020-12-07] VITALS (7 sets, daily range): BP systolic 126–150; BP diastolic 54–80
[2020-12-07 02:39] LABS: ABSOLUTE NEUTROPHILS 6.5 thou/uL (1.4-8.2); BASOPHILS 0.4 % (0.0-2.0); EOSINOPHILS 0.2 % (0.0-3.0); HEMATOCRIT 39.2 % (37.0-47.0); HEMOGLOBIN 12.9 gm/dL (12.0-15.0); MCH 29.4 pg (26.0-34.0); MCV 89.1 fL (80.0-100.0); MONOCYTES 5.8 % (1.0-8.0); PLATELET COUNT 308 thou/uL (150-400); POLYS 76.6 % (36.0-66.0); RDW 13.7 % (10.5-14.5); WBC 8.4 thou/uL (4.0-11.0)
[2020-12-07 02:49] LABS: ANION GAP 7 mmol/L (7-16); BUN 16 mg/dL (7-18); CALCIUM 9.3 mg/dL (8.5-10.1); CHLORIDE 104 mmol/L (98-107); CO2 27 mmol/L (21-32); CREATININE 0.6 mg/dL (0.6-1.0); GLUCOSE 115 mg/dL (74-106); POTASSIUM 4.1 mmol/L (3.5-5.1); SODIUM 138 mmol/L (136-145)
[2020-12-07 02:57] LABS: ALBUMIN 3.4 g/dL (3.4-5.0); MAGNESIUM 1.9 mg/dL (1.8-2.4); SGOT 15 U/L (15-37); SGPT 12 U/L (30-65); TOTAL BILIRUBIN 0.5 mg/dL (0.2-1.0); TOTAL PROTEIN 7.2 g/dL (6.4-8.2); TROPONIN-I <0.06 ng/mL (<0.06)
--- NOTE | 2020-12-07 03:51 | NUR ---
Talked with Lilo from [facility] regarding code status of patient Pt is Full Code
--- NOTE | 2020-12-07 07:11 | NUR ---
Called to give report but ALISON Arguello said she will call back because she is currently getting report
--- NOTE | 2020-12-07 07:25 | EKG ---
[place] [address] [facility] [place] [address] ELECTROCARDIOGRAM REPORT Name: CARSON GUERRERO Room #: 170-8 ADM [facility] M.R.#: [id number] Admission: 12/07/20 Attend Phys: Mert Estevez, Discharge: Date of : 50 Report #: [id number] [facility] ED Test Date: 2020-12-07 Test Time: 04:04:32 Pat Name: CARSON GUERRERO Department: Room: 170 Gender: F Manager Telecom: DAKOTAH : 1950 Requested By: Kriss Mayers Order Number: [id number] MD: Marshall Mccann Measurements Intervals [place] Rate: 58 P: 72 [place]: 164 QRS: 7 QRSD: 107 T: 41 QT: 435 QTc: 428 Interpretive Statements Sinus rhythm Anterior infarct, old Compared to ECG 03/15/2019 15:04:33 Myocardial infarct finding now present Left bundle-branch block no longer present Electronically Signed On 12-07-2020 7:25:49 CDT by Marshall Mccann [email or web address] <ELECTRONICALLY SIGNED> By: Marshall Mccann MD, [facility] 12/07/20 0725 3 040 Marshall Mccann MD, FACC /EPI
--- NOTE | 2020-12-07 07:40 | NUR ---
PT ARRIVED TO ROOM. PT ON TELE AND SHOWING SINUS RHYTHM 78. PT ARRIVED FROM ER VIA CART, NEEDED ASSISTANCE FOR TRANSFERING OVER TO BED. PT HAS SOME REDDNESS UNDER BREAST, NOTICED A FOWL SMELL LIKE YEAST, PT DENIES ANY REDDNESS IN PANIS AREA. PT DENIES ANY PAIN, HEADACHE, OR DIZZINESS. PT STATED SHE GOT DIZZY LAST NIGHT WITHOUT LOOSING CONSCIOUSNESS. PT STATED SHE USES WALKER NORMALY FOR BATHROOM.
--- NOTE | 2020-12-07 08:00 | NUR ---
AFTER TRANSFER TO BED, PT DID GET NAUSEATED AND VOMITED GREEN BILE AROUND 200ML. PT STATED IT WAS FROM THE TRANSFER. PT IS FROM [facility], A HOUSE WITH OTHER INDIVIDUALS. PT ON ROOM AIR. PT WAS ADMITED FOR BRADICARDIA. PT STATED SHE HAS HX OF LOW BP AND ON MEDICATION FOR THAT.
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
--- NOTE | 2020-12-07 11:51 | NUR ---
PT ADMITTED RELATED TO FALL, SKULL FRACTURE, L HIP PAIN, BRADYCARDIA. CM REVIEWED CHART AND SPOKE WITH CARE TEAM. CM MET WITH PT AT BEDSIDE THIS DAY. PT APPEARED TO BE A&O X4. CM ROLE INTRODUCED. PT INDICATED SHE RESIDES OVER AT [facility] A [facility]. PT INIDCATED SHE HAD USED A 4WW WITH A SEAT TO ASSIST WITH MOBILITY AND THAT SHE HAD BEEN FAIRLY INDEPENDENT WITH ADLS DISPENSING LEAD. PT INDICATED NO HH HX. PT CONFIRMED HER CONTACTS HER SON JUVENTINO NAZARIO AND DIRECTOR MIGDALIA. CM CALLED BOTH. VM LEFT FOR SON MIGDALIA'S PHONE WAS BUSY. PT INDICATED SHE ANTICIPATES RETURNING TO [facility] ONCE MEDICALLY STABLE. CM TO FOLLOW INIDCATED WITH DC PLANNING.
--- NOTE | 2020-12-07 15:24 | NUR ---
DR. BARRIOS SPOKE WITH THIS SCOURING TRAIN OPERATOR CHIEF AND STATED TO CHANGE SERVICE TO DR. ZAMAN DUE TO NO CONSULT WAS CALLED TO HIM THIS AM. THIS SCOURING TRAIN OPERATOR CHIEF TOLD SEC. TO CALL DR. BARRIOS THIS AM.
--- NOTE | 2020-12-07 15:41 | NUR ---
SPOKE TO DR. ZAMAN ABOUT PT HERE AND HE STATED THAT HE IS DR. CORBIN MCDOWELL PATIENT. CALLED OFFICE AND DR. MCDOWELL CALLED IN DURING CONSULT CALL. TALKED TO DR. MCDOWELL AND HE APPROVED HER HOME MEDS AND HE WILL SEE HER TODAY.
[2020-12-07] MEDS ORDERED: MIDODRINE HCL 55 M1 PO (17:09)
--- NOTE | 2020-12-07 18:06 | NUR ---
DR. YOUNG SEEN PT AND STATED HE WANTED ANOTHER CAT SCAN AND THEN IF NEG SHE COULD GO HOME TOMMORROW AM. PT STATED SHE WOULD LIKE TO GO HOME TONIGHT. PT UP WITH YARN TWISTER TO VOID. PT HASN'T VOIDED TODAY. YARN TWISTER STATED SHE VOIDED 800ML AND HAD AN ODOR TO IT. TALKED WITH PT AND SHE DIDN'T WANT TO WATCH TV. SHE SAID SHE DOESN'T DO MUCH, PRETTY MUCH BORING. 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
--- NOTE | 2020-12-08 03:22 | NUR ---
ASSUMED CARE OF PT AT SHIFT CHANGE. PT IS AOX4 AND LETS NEEDS BE KNOWN. FALL PRECAUTION IN PLACE. PT DENIEN PAIN, NAUSEA OR SOA. ASSESSMENT CHARTED. PT TOOK ALL HS MEDS WHOLE WITH H2O. ASSESSMENT CHARTED. PT RUNNING SR/SB ON TELE. PT WAS ABLE TO GET COMFORTABLE AND SLEEP PART OF THE SHIFT. VSS AND NO S/S OF ACUTE DISTRESS. WILL CONTINUE TO MONITOR FOR CHANGES.
[2020-12-08 05:39] VITALS: BP 133/67
[2020-12-08 07:42] VITALS: BP 139/59
--- NOTE | 2020-12-08 11:47 | NUR ---
PT ALERT AND ORIENTED TIMES FOUR WITH A BLUNT FLAT AFFECT. VSS. PT DENIES PAIN/SOA. PT TOLERATES MEDS AND MEALS. PLANS FOR DISCHARGE TODAY. WILL CONTINUE TO MONITOR.
--- NOTE | 2020-12-08 15:34 | NUR ---
DR. YOUNG PUT IN DC ORDERS. DR. MCDOWELL WAS NOTIFIED AND INDICATED HE WANTED TO SEE PT PRIOR TO HER LEAVING. ANTOINETTE CALLED DETENTION DIRECTOR MIGDALIA AND NOTIFIED HER OF POSSIBLE DC HOME THIS AFTERNOON IF CLEARED BY DR. MCDOWELL. MIGDALIA INDICATED THEY WERE FINE TO ACCEPT PT BACK SHE INDICATED SHE COULD BE CONTATED TO ARRANGE TRANSPORT IF DR. FERRARI VISITED AFTER 5 WHEN [facility] CLOSES. ANTOINETTE PROVIDED NURSE WITH HER NUMBER.
[2020-12-08 18:21] VITALS: BP 106/57
== END 2020-12-08 19:20 | disposition home or self-care (01) | DRG 87 ==
LOC: ER 23:25 → EROBS 12-07 04:20 → 4W 12-07 07:35
PROVIDERS: Emergency Medicine; ADMIT Surgery; ATTEND Surgery
DX: S02.19XA Other fracture of base of skull, initial encounter for closed fracture (principal); I10 Essential (primary) hypertension; E78.5 Hyperlipidemia, unspecified; S09.90XA Unspecified injury of head, initial encounter; F31.9 Bipolar disorder, unspecified; S00.03XA Contusion of scalp, initial encounter; Z98.42 Cataract extraction status, left eye; Z98.41 Cataract extraction status, right eye; Z88.6 Allergy status to analgesic agent; Z88.8 Allergy status to other drugs, medicaments and biological substances; W01.0XXA Fall on same level from slipping, tripping and stumbling without subsequent striking against object, initial encounter; Y93.89 Activity, other specified; Y92.89 Other specified places as the place of occurrence of the external cause; Y99.8 Other external cause status
CPT/HCPCS: 10045

== ENCOUNTER 2021-08-16 17:52 | Emergency (ER) | payer OTHER ==
[~2021-08-16] VITALS: Ht 157.5 cm; Wt 79.8 kg
--- NOTE | ~2021-08-16 | EMS ---
[address] [address] EMS Patient Care Report Name: CARSON GUERRERO Room #: DEP YESSY Carrera#: [id number] Admission: 08/16/21 Attend Phys: Discharge: 08/16/21 Date of : 50 Report #: [id number] THIS REPORT FOR: //name// Report Transmitted: 08/20/2021 14:08 EMS Care Summary [place], [place]/[facility] Incident [id number] @ 08/16/2021 17:31 Incident Location [address] [place] [address] Patient CARSON GUERRERO Female, 71 Years 1950 Patient Address Patient History Hyperthyroidism,Cellulitis, Patient Allergies Percocet, Patient Medications Mirtazapine, Chief Complaint hip pain Disposition Transported No Lights/[place] Dispatch Reason Falls Transported To [facility] Narrative M528 dispatched for a 71 year old female conscious and breathing that has fallen down. Arrival at the scene EMS personnel find the patient laying down on the floor of the facility. Patient acknowledges EMS presence is GCS 15, AAOX4. Patient has a patent airway is breathing adequately with strong regular radial pulses. Patient advises that she tripped and fell down and landed on her left side. Patient denies any neck or back pain. Patient denies any loss of [address] [address] EMS Patient Care Report Name: CARSON GUERRERO Room #: DEP YESSY Carrera#: [id number] Admission: 08/16/21 Attend Phys: Discharge: 08/16/21 Date of : 50 Report #: [id number] consciousness or blood thinners. Patient advises of bilateral hip pain. Using a soft stretcher patient is moved from the ground to the stretcher and secured in the fowlers position using seatbelts and rails. Patient is wheeled to the ambulance and VS are obtained. Transport is initiated. Assessment is conducted and unremarkable. Arrival at the receiving facility patient is offloaded and taken to a ED hallway bed. RN is given report and transfer of care is completed and signatures are obtained. M528 returns to service. Initial Vitals @17:41P: 82,R: 18,BP: 126/65,Pain: 4/10,GCS: 15,SpO2: 98,Revised Trauma: 12, @17:47P: 87,R: 18,BP: 117/55,Pain: 4/10,GCS: 15,SpO2: 97,Revised Trauma: 12, Assessments @17:36MENTAL:No Abnormalities,SKIN:No Abnormalities,HEENT:Head/Face: No Abnormalities,Eyes: No Abnormalities,Neck/Airway: No Abnormalities,LUNG SOUNDS:General: No Abnormalities,Left Upper: No Abnormalities,Right Upper: No Abnormalities,Left Lower: No Abnormalities,Right Lower: No Abnormalities,ABDOMEN:General: No Abnormalities,Left Upper: No Abnormalities,Right Upper: No Abnormalities,Left Lower: No Abnormalities,Right Lower: No Abnormalities,PELVIS//GI:Tenderness,EXTREMITIES:Left Arm: No Abnormalities,Right Arm: No Abnormalities,Left Leg: No Abnormalities,Right Leg: No Abnormalities,PULSE:NEURO:No Abnormalities, Impression Acute Pain, not elsewhere classified Procedures @17:36 ALS Assessment Response: UnchangedSucceeded Timeline 17:29,Call Received 17:29,Dispatch Notified 17:31,Dispatched 17:33,En Route 17:34,On Scene 17:35,At Patient 17:36,ALS Assessment,Response: UnchangedSucceeded, 17:41,BP: 126/65 M,PULSE: 82,RR: 18 R,SPO2: 98 Ox,ETCO2: ,BG: ,PAIN: 4,GCS: 15, 17:43,Depart Scene 17:47,BP: 117/55 M,PULSE: 87,RR: 18 R,SPO2: 97 Ox,ETCO2: ,BG: ,PAIN: 4,GCS: 15, 17:58,At Destination 18:00,Call Closed [facility] [address] [place] [address] EMS Patient Care Report Name: CARSON GUERRERO Room #: DEP ER Deandre#: [id number] Admission: 08/16/21 Attend Phys: Discharge: 08/16/21 Date of : 50 Report #: [id number] Disclaimer v1.1 Copyright 2020 [employer] This EMS Care Summary contains data elements from the applicable legal record (which may be displayed differently). It is designed to provide pertinent information for the following purposes: continuity of care, clinical quality, and state data reporting. The complete legal record is available to ED staff and administrators of the receiving hospital in [facility]'s Patient Tracker. All data is provided "as is."
[~2021-08-16 17:52] MED LIST changes: +MIDODRINE HCL 55 M1 PO
[2021-08-16 21:14] VITALS: BP 142/68
== END 2021-08-16 21:33 ==
LOC: ER 17:52
DX: S16.1XXA Strain of muscle, fascia and tendon at neck level, initial encounter (principal); I10 Essential (primary) hypertension; E78.5 Hyperlipidemia, unspecified; Z90.89 Acquired absence of other organs; F31.9 Bipolar disorder, unspecified; Z79.84 Long term (current) use of oral hypoglycemic drugs; Z79.891 Long term (current) use of opiate analgesic; Z79.1 Long term (current) use of non-steroidal anti-inflammatories (NSAID); Z79.899 Other long term (current) drug therapy; Z88.8 Allergy status to other drugs, medicaments and biological substances; Z88.6 Allergy status to analgesic agent; W18.30XA Fall on same level, unspecified, initial encounter; Y93.89 Activity, other specified; Y92.89 Other specified places as the place of occurrence of the external cause; Y99.8 Other external cause status

== ENCOUNTER 2021-08-24 17:37 | Emergency (ER) | payer OTHER ==
[~2021-08-24] VITALS: Ht 160 cm; Wt 79.4 kg
[2021-08-24 17:44] VITALS: BP 143/65
[2021-08-24 18:39] LABS: BASOPHILS 0.6 % (0.0-2.0); HEMATOCRIT 33.6 % (37.0-47.0); HEMOGLOBIN 10.8 gm/dL (12.0-15.0); LYMPHOCYTES 27.9 % (24.0-44.0); MCH 29.7 pg (26.0-34.0); MCHC 32.2 g/dL (28.0-37.0); MCV 92.2 fL (80.0-100.0); MONOCYTES 14.5 % (1.0-8.0); PLATELET COUNT 362 thou/uL (150-400); RBC 3.64 mil/uL (4.20-5.00); RDW 14.3 % (10.5-14.5); WBC 5.7 thou/uL (4.0-11.0)
[2021-08-24 18:46] LABS: CREATININE 0.6 mg/dL (0.6-1.0); POTASSIUM 4.1 mmol/L (3.5-5.1)
[2021-08-24] MEDS ORDERED: NAPROSYN500 MG PO (19:10)
[2021-08-24] MEDS ORDERED: LASIX 40 MG TAB40 MG PO (19:10)
== END 2021-08-24 20:50 | disposition home or self-care (01) ==
LOC: ER 17:37
PROVIDERS: Emergency Medicine
DX: I89.0 Lymphedema, not elsewhere classified (principal); Z20.822 Contact with and (suspected) exposure to COVID-19; I10 Essential (primary) hypertension; Z88.6 Allergy status to analgesic agent; Z88.5 Allergy status to narcotic agent

== ENCOUNTER 2021-10-30 12:48 | Observation (INO) | payer OTHER ==
[~2021-10-30] VITALS: Ht 160 cm; Wt 97.6 kg
[~2021-10-30 12:48] MED LIST changes: +LASIX 40 MG TAB40 MG PO; +NAPROSYN500 MG PO
[2021-10-30 12:50] VITALS: BP 110/44
[2021-10-30 13:43] LABS: ABSOLUTE NEUTROPHILS 5.7 thou/uL (1.4-8.2); BASOPHILS 0.5 % (0.0-2.0); EOSINOPHILS 2.2 % (0.0-3.0); HEMATOCRIT 35.7 % (37.0-47.0); HEMOGLOBIN 12.4 gm/dL (12.0-15.0); LYMPHOCYTES 20.9 % (24.0-44.0); MCH 30.5 pg (26.0-34.0); MCHC 34.8 g/dL (28.0-37.0); MCV 87.5 fL (80.0-100.0); MONOCYTES 8.1 % (1.0-8.0); PLATELET COUNT 341 thou/uL (150-400); POLYS 68.3 % (36.0-66.0); RBC 4.08 mil/uL (4.20-5.00); RDW 14.3 % (10.5-14.5); WBC 8.4 thou/uL (4.0-11.0)
[2021-10-30 13:51] LABS: CALCIUM 9.5 mg/dL (8.5-10.1); CREATININE 0.6 mg/dL (0.6-1.0); POTASSIUM 3.9 mmol/L (3.5-5.1)
[2021-10-30 18:31] VITALS: BP 111/41
--- NOTE | 2021-10-30 19:00 | NUR ---
PT WAITING FOR TRANSPORT TO INPATIENT FLOOR. PT REPORT GIVEN TO IRCKIE DIRECTOR OF DESIGN RN AT THIS TIME
--- NOTE | 2021-10-30 19:12 | NUR ---
ASSUME CARE OF PT.
[2021-10-30 19:17] VITALS: BP 129/50
[2021-10-30 19:55] VITALS: BP 155/54
--- NOTE | 2021-10-30 20:00 | NUR ---
Pt. admitted to the unit from the emergency room accompanied by staff. She is alert and oriented. Pt. offers no complaints. Admission assessment and history is completed.
[2021-10-31 06:46] LABS: ABSOLUTE NEUTROPHILS 2.4 thou/uL (1.4-8.2); BASOPHILS 0.8 % (0.0-2.0); EOSINOPHILS 3.1 % (0.0-3.0); HEMATOCRIT 33.7 % (37.0-47.0); HEMOGLOBIN 11.2 gm/dL (12.0-15.0); LYMPHOCYTES 40.5 % (24.0-44.0); MCH 29.4 pg (26.0-34.0); MCHC 33.3 g/dL (28.0-37.0); MCV 88.3 fL (80.0-100.0); MONOCYTES 8.8 % (1.0-8.0); PLATELET COUNT 326 thou/uL (150-400); POLYS 46.8 % (36.0-66.0); RBC 3.81 mil/uL (4.20-5.00); RDW 14.1 % (10.5-14.5); WBC 5.2 thou/uL (4.0-11.0)
--- NOTE | 2021-10-31 07:07 | NUR ---
Pt. rested quietly during the night when checked on during frequent rounds. She has been running sinusbrady in the upper 50's. Ambulates to the bathroom with walker and standby assistance. Bed alarm is on.
[2021-10-31 07:12] LABS: ALBUMIN 3.1 g/dL (3.4-5.0); CALCIUM 8.9 mg/dL (8.5-10.1); CREATININE 0.7 mg/dL (0.6-1.0); POTASSIUM 4.2 mmol/L (3.5-5.1); TOTAL BILIRUBIN 0.3 mg/dL (0.2-1.0); TOTAL PROTEIN 6.6 g/dL (6.4-8.2)
[2021-10-31 07:59] VITALS: BP 130/61
--- NOTE | 2021-10-31 09:55 | EKG ---
[place] [address] [facility] [place] [address] ELECTROCARDIOGRAM REPORT Name: CARSON GUERRERO Room #: 442-P ADM IN M.R.#: [id number] Admission: 10/30/21 Attend Phys: Braxton Kumar DO Discharge: Date of : 50 Report #: [id number] [facility] ED Test Date: 2021-10-30 Test Time: 13:31:27 Pat Name: CARSON GUERRERO Department: Room: 442 Gender: F Plaster Model [employer] Maker: : 1950 Requested By: Humberto Salmeron Order Number: [id number] MD: Carlin Santillan Measurements Intervals [place] Rate: 49 P: 107 IA: 201 QRS: 5 QRSD: 88 T: 32 QT: 439 QTc: 397 Interpretive Statements Sinus bradycardia Left ventricular hypertrophy Anterior infarct, old Compared to ECG 12/07/2020 04:04:32 Left ventricular hypertrophy now present Sinus rhythm no longer present Myocardial infarct finding still present Electronically Signed On 10-31-2021 9:55:36 DIRECTOR PRESALES by Carlin Santillan [email or web address] <ELECTRONICALLY SIGNED> By: Carlin Santillan MD 10/31/21 0955 1331 30 Carlin Santillan MD /DONNA
--- NOTE | 2021-10-31 11:46 | H ---
[facility] [place] [address] HISTORY AND PHYSICAL Name: CARSON GUERRERO Room #: 442-P ADM IN M.R.#: [id number] Admission: 10/30/21 Attend Phys: Braxton Kumar DO Discharge: Date of : 50 Report #: [id number] THIS REPORT FOR: cc: Anatoly Osuna MD Anatoly Stern MD [facility] Braxton Jin DO ~ cc: Anatoly Osuna MD DATE OF SERVICE: 10/30/2021 HISTORY OF PRESENT ILLNESS: This 71-year-old white female was admitted for observation purposes through the Emergency Room with a history that she was given the wrong patient's medications by accident this morning including beta blockers. The patient is treated primarily for bipolar disorder and has lived at [facility] for the last 12 years. She was given the wrong medications, which consist of Zyloprim 200 mg, amitriptyline 25 mg, amlodipine 10 mg, aspirin 81 mg, atorvastatin 40 mg, clopidogrel 75 mg, desvenlafaxine 50 mg, ferrous sulfate 325 mg, glipizide 2.5 mg, hydrochlorothiazide 25 mg, loratadine 10 mg daily, losartan 100 mg daily, MiraLax 1 capful, tamsulosin 0.4 mg, Theragran-M 1 daily, carvedilol 25 mg, Austedo 9 mg, gemfibrozil 600 mg, omeprazole 40 mg, oxybutynin 5 mg. Once the nurse recognized her mistake, she was sent to the Emergency Room where she has been found to be bradycardic, but otherwise stable. The patient does complain of a mild headache. She says she has been walking on her own recently and not using her walker. She did have COVID 2 weeks ago, but was not very ill, stating that all 12 residents of the home plus the head nurse all had COVID at the same time. PAST MEDICAL HISTORY: The patient has a history of primarily bipolar disorder and also depression, hyperlipidemia, peripheral neuropathy, urinary incontinence, hypertension, hypothyroidism. PAST SURGICAL HISTORY: Previous surgeries include tonsillectomy and benign breast biopsy. MEDICATIONS ON ADMISSION: Abilify 15 mg daily, coenzyme Q 100 mg daily, fish oil 1200 mg daily, gabapentin 100 mg at bedtime, lamotrigine ODT 100 mg at bedtime, Synthroid 0.112 mg daily, loratadine 10 mg daily, magnesium oxide 40 mg every afternoon, mirtazapine 15 mg at bedtime, Prosight 1 tablet at 5:00 p.m. daily, ropinirole 1 mg at bedtime, simvastatin 40 mg at bedtime, Trintellix 20 mg daily, Fanapt 10 mg b.i.d., metformin 500 mg b.i.d., topiramate 25 mg b.i.d., Tylenol 1000 mg every 4 hours p.r.n. pain, ibuprofen 800 mg every 6 hours p.r.n. pain, midodrine 10 mg t.i.d. p.r.n. blood pressure less than 100, nitrofurantoin 100 mg b.i.d., ProAir 2 puffs q.i.d. as needed, ammonium lactate 12% to her legs daily, PreviDent 5000 mg, brush along gumline twice a day for 2 minutes. ALLERGIES: SARA INHIBITORS (RASH AND SWELLING), ULTRAM, PERCOCET, [facility] [address] [place] [address] HISTORY AND PHYSICAL Name: CARSON GUERRERO Room #: 442-P ADM IN M.R.#: [id number] Admission: 10/30/21 Attend Phys: Braxton Kumar DO Discharge: Date of : 50 Report #: [id number] PHENYLPIPERAZINE. :REVIEW OF SYSTEMS: She does not smoke or drink. She used to be a nurse. Her parents , her mother in her 70s and father in her 80s. She denies chest pain, shortness of breath, nausea, vomiting, fever, chills, abdominal pain. She does have neuropathy in her feet, which precludes her walking on her own. She had COVID 2 weeks ago, but was not very sick she says. PHYSICAL EXAMINATION: GENERAL: Pleasant, slightly overweight, well oriented white female. VITAL SIGNS: BP 111/41, pulse 51, respirations 14, temperature afebrile, pulse ox 97%. HEAD: No rash or trauma. EARS, NOSE AND THROAT: Has her own teeth in fair condition. No oral lesions. EYES: No icterus. NECK: Supple, without bruits. LUNGS: Clear. Cough dry. HEART: Rhythm regular, without murmur. BREASTS: Deferred. ABDOMEN: Obese, but soft and nontender. EXTREMITIES: No cyanosis or edema. NEUROLOGIC: She is alert and well oriented, seems like an accurate historian. Sits up without difficulty. No lateralized deficits. LABORATORY DATA: Hemoglobin 12.4, white count 8400. Sodium 135, potassium 3.9, CO2 of 26, BUN 19, creatinine 0.6, blood sugar 80, calcium 9.5. No x-rays were taken in the Emergency Room. EKG shows heart rate of 49, LVH and old anterior infarct. IMPRESSION: 1. Incorrect medication administration, with bradycardia. 2. History of hypertension. 3. Bipolar disorder. 4. Peripheral neuropathy. 5. History of hypothyroidism. 6. History of major depression. 7. Hyperlipidemia. 8. Gastroesophageal reflux. 9. History of urinary incontinence. [facility] [address] [place] [address] HISTORY AND PHYSICAL Name: CARSON GUERRERO Room #: 442-P ADM IN M.R.#: [id number] Admission: 10/30/21 Attend Phys: Braxton Kumar DO Discharge: Date of : 50 Report #: [id number] PLAN: Admit for observation status on telemetry. Monitor blood sugars. Watch for worsening bradycardia. <ELECTRONICALLY SIGNED> By: Braxton Kumar DO 10/31/21 1146 1756 1828 Braxton Kumar DO /nt
[2021-10-31] MEDS ORDERED: TYLENOL EXTRA500 MG PO (12:24)
[2021-10-31] MEDS ORDERED: ABILIFY15 MG PO (12:27)
--- NOTE | 2021-10-31 15:58 | NUR ---
Assumed care of patient at 0700. Oriented x4, room air, sinus bradycardia observed on telemtry. Dr. Kumar at bedside to assess patient. No concerns, states that pt is stable enough to discharge back to facility. [facility]. Pt's IV removed, dressed, ready to go. Vital signs stable other than slight bradycardia in 50s. Dr. Kumar aware. Facility providing transportation, arrived at 1545. Hard chart given to facility mechanic, Lilo. Pt discharged from telemetry and system.
[2021-11-01 03:06] LABS: GLYCOHEMOGLOBIN (HGB A1C) 5.5 % (4.8-5.6)
--- NOTE | 2021-11-01 07:23 | D ---
[facility] [place] [address] DISCHARGE SUMMARY Name: CARSON GUERRERO Room #: 442-P [facility] IN M.R.#: [id number] Admission: 10/30/21 Attend Phys: Braxton Kumar DO Discharge: 10/31/21 Date of : 50 Report #: [id number] THIS REPORT FOR: cc: Anatoly Osuna MD, FAAFP, FACEP, Douglas MD FAAFP FACEP Cohen, Donald L. DO ~ DATE OF SERVICE: 10/31/2021 HISTORY OF PRESENT ILLNESS: This 71-year-old white female was admitted for observation purposes through the Emergency Room with the history that she had been given the wrong patient's medications at [facility] where she has resided for 12 years. The mistaken medications included carvedilol and several psychotropics. The patient did become somewhat bradycardic and was admitted for observation on telemetry. PAST MEDICAL HISTORY: Includes bipolar disorder, depression, hypertension, hypothyroidism, peripheral neuropathy, hyperlipidemia, urinary incontinence, tonsillectomy and benign breast biopsy. HOSPITAL COURSE: Initial physical revealed a pleasant, overweight white female. She is a retired nurse. Vital signs revealed the heart rate was in the 50s, BP 111/41. She was afebrile. Head and neck revealed her own teeth in fair condition. No bruits. Lungs were clear. Cardiac exam negative. Abdomen soft, obese, but soft and nontender. Extremities had no edema or cyanosis. Neurologic, she was alert and oriented, was an accurate historian without lateralized deficits. Initial hemoglobin 12.4, white count 8400. Sodium 135, potassium 3.9, CO2 of 26, BUN 19, creatinine 0.6, blood sugar 80, calcium 9.5. EKG showed sinus bradycardia, LVH and old anterior infarct. The patient was admitted on telemetry and continued to show mild bradycardia, with heart rates in the 50s. She was able to ambulate to the bathroom with assistance and a walker. Her repeat hemoglobin 11.2 grams, white count 5200. Sodium 133, potassium 4.2, CO2 of 26, BUN 22, creatinine 0.7, estimated GFR 82. Blood sugar is 94. The patient neurologically remained stable and on the afternoon of 10/31/2021 was judged stable for return back to [facility] on a low-salt, no concentrated sweets diet on her previous outpatient meds consisting of Abilify 15 mg daily, coenzyme Q 100 mg daily, fish oil 1200 mg daily, gabapentin 100 mg at bedtime, lamotrigine ODT 100 mg at bedtime, Synthroid 0.112 mg daily, loratadine 10 mg daily, Mag-Ox 40 mg daily, mirtazapine 15 mg at bedtime, Prosight 1 at 5:00 p.m., ropinirole 1 mg at bedtime, simvastatin 40 mg at bedtime, Trintellix 20 mg daily, Fanapt 10 mg b.i.d., metformin 500 mg b.i.d., topiramate 25 mg b.i.d., Tylenol 1000 mg q. 6 hours p.r.n. pain, ibuprofen 800 mg q. 6 hours p.r.n. pain, midodrine 10 mg t.i.d. p.r.n. blood pressure less than 100, ProAir 2 puffs q.i.d. as needed, ammonium lactate 12% to her legs as a moisturizer and PreviDent 5000 mg brush along gumline twice a day. [facility] [address] [place] [address] DISCHARGE SUMMARY Name: CARSON GUERRERO Room #: 442-P DIS IN M.R.#: [id number] Admission: 10/30/21 Attend Phys: Braxton Kumar DO Discharge: 10/31/21 Date of : 50 Report #: [id number] FINAL DIAGNOSES: 1. Medication errors. 2. Bipolar disorder. 3. Hypertension. 4. Hypothyroidism. 5. Hyperlipidemia. 6. Peripheral neuropathy. 7. Depression. 8. Hypercholesterolemia. 9. DIABTETES MELLITUS WITH NEUROPATHY <ELECTRONICALLY SIGNED> By: Braxton Kumar DO 11/01/21 0723 1136 1235 Braxton Kumar DO /nt
== END 2021-10-31 16:06 ==
LOC: ER 12:48 → 4S 15:34 → EROBS 15:34 → 4S 19:30
PROVIDERS: Emergency Medicine; ADMIT Internal Medicine; ATTEND Internal Medicine
DX: R00.1 Bradycardia, unspecified (principal); Z20.822 Contact with and (suspected) exposure to COVID-19; F31.9 Bipolar disorder, unspecified; I10 Essential (primary) hypertension; E78.5 Hyperlipidemia, unspecified; G62.9 Polyneuropathy, unspecified
CPT/HCPCS: 10100